=== PATIENT | male | born 1940 | race Two or more races ===

== ENCOUNTER 2017-02-16 13:29 | Emergency (ER) | payer MEDICARE ==
[2017-02-16 15:59] LABS: BASO # 0.1 10^3/uL (0.0-0.2); BASO % 0.5 % (0.0-1.0); EOS # 0.1 10^3/uL (0.0-0.50); EOS % 1.4 % (0.0-3.0); IMMATURE GRANULOCYTE # 0.2 10^3/uL (0-0); IMMATURE GRANULOCYTE % 1.7 % (0-0); LYMPH # 1.3 10^3/uL (1.5-4.5); LYMPH % 12.3 % (24.0-44.0); MEAN CORPUSCULAR HEMOGLOBIN 27.6 pg (27.0-33.0); MEAN CORPUSCULAR HGB CONC 32.5 g/dl (32.0-36.5); MEAN CORPUSCULAR VOLUME 85.1 fl (80.0-96.0); MONO # 0.6 10^3/uL (0.0-0.8); MONO % 6.3 % (0.0-5.0); NEUTROPHILS # 7.9 10^3/uL (1.8-7.7); NEUTROPHILS % 77.8 % (36.0-66.0); PLATELET COUNT, AUTOMATED 241 10^3/uL (150-450); RED CELL DISTRIBUTION WIDTH 13.2 % (11.5-14.5); WHITE BLOOD COUNT 10.2 10^3/uL (4.0-10.0)
[2017-02-16] MEDS: NORCO, ANEXSIA 5/325MG TABLET (HYDROcodone/ACETAMINOPHEN) PO (16:12)
[2017-02-16 16:21] LABS: ALBUMIN 3.4 GM/DL (3.2-5.2); ALBUMIN/GLOBULIN RATIO 0.97 (1.00-1.93); ALKALINE PHOSPHATASE 120 U/L (45-117); ALT/SGPT 17 U/L (12-78); ANION GAP 8 MEQ/L (8-16); AST/SGOT 29 U/L (7-37); BILIRUBIN,DIRECT 0.1 MG/DL (0.0-0.2); BILIRUBIN,TOTAL 0.4 MG/DL (0.2-1.0); BLOOD UREA NITROGEN 24 MG/DL (7-18); CALCIUM LEVEL 8.8 MG/DL (8.8-10.2); CARBON DIOXIDE LEVEL 30 MEQ/L (21-32); CHLORIDE LEVEL 103 MEQ/L (98-107); CREATININE FOR GFR 1.18 MG/DL (0.70-1.30); GLOMERULAR FILTRATION RATE > 60.0 (>42); GLUCOSE, FASTING 87 MG/DL (83-110); SODIUM LEVEL 141 MEQ/L (136-145); TOTAL PROTEIN 6.9 GM/DL (6.4-8.2)
== END 2017-02-16 17:21 | disposition home or self-care (01) ==
LOC: M ED 13:29
DX: G62.9 Polyneuropathy, unspecified (principal); I10 Essential (primary) hypertension; E78.5 Hyperlipidemia, unspecified; I25.2 Old myocardial infarction; Z95.5 Presence of coronary angioplasty implant and graft
CPT/HCPCS: 71020

== ENCOUNTER 2017-02-18 07:03 | Emergency (ER) | payer MEDICARE ==
[2017-02-18] MEDS: GABAPENTIN 300 MG CAP PO (09:30)
[2017-02-18] MEDS: PERCOCET 5MG/325MG TAB PO (09:31)
== END 2017-02-18 09:57 | disposition home or self-care (01) ==
LOC: M ED 07:03
DX: M89.2 Other disorders of bone development and growth (principal); G62.9 Polyneuropathy, unspecified; I10 Essential (primary) hypertension; I25.2 Old myocardial infarction; E78.5 Hyperlipidemia, unspecified; K21.9 Gastro-esophageal reflux disease without esophagitis; Z95.5 Presence of coronary angioplasty implant and graft; Z79.899 Other long term (current) drug therapy; Z79.01 Long term (current) use of anticoagulants
CPT/HCPCS: 73090

== ENCOUNTER 2017-04-01 09:55 | Outpatient (RCR) | payer MEDICARE | END 2017-04-17 | LOC: M OT 09:55 | DX: M79.603 Pain in arm, unspecified (principal); Z85.79 Personal history of other malignant neoplasms of lymphoid, hematopoietic and related tissues; Z51.89 Encounter for other specified aftercare | CPT/HCPCS: 97110 ==

== ENCOUNTER 2017-04-22 09:52 | Outpatient (RCR) | payer MEDICARE | END 2017-05-18 | LOC: M OT 09:52 | DX: Z51.89 Encounter for other specified aftercare (principal); M79.603 Pain in arm, unspecified; Z85.79 Personal history of other malignant neoplasms of lymphoid, hematopoietic and related tissues | CPT/HCPCS: 97110 ==

== ENCOUNTER 2017-05-27 09:45 | Outpatient (RCR) | payer MEDICARE | END 2017-06-17 | LOC: M OT 09:45 | DX: Z51.89 Encounter for other specified aftercare (principal); M79.603 Pain in arm, unspecified | CPT/HCPCS: 97110 ==

== ENCOUNTER → 2017-06-04 | Outpatient (CLI) | payer MEDICARE | LOC: M CLY 15:25 | DX: J40 Bronchitis, not specified as acute or chronic (principal) | CPT/HCPCS: 71046 ==

== ENCOUNTER 2017-06-25 19:48 | Inpatient (IN) | payer MEDICARE ==
[2017-06-25] MEDS: ACETAMINOPHEN TAB 650MG DOSE (2X325MG) PO (20:57)
[2017-06-25 20:58] LABS: HEMATOCRIT 33.8 % (42.0-52.0); HEMOGLOBIN 11.3 g/dl (13.5-17.5); MEAN CORPUSCULAR HEMOGLOBIN 28.8 pg (27.0-33.0); MEAN CORPUSCULAR HGB CONC 33.4 g/dl (32.0-36.5); MEAN CORPUSCULAR VOLUME 86.2 fl (80.0-96.0); PLATELET COUNT, AUTOMATED 161 10^3/uL (150-450); RED BLOOD COUNT 3.92 10^6/uL (4.30-6.10); RED CELL DISTRIBUTION WIDTH 13.9 % (11.5-14.5); WHITE BLOOD COUNT 6.7 10^3/uL (4.0-10.0)
[2017-06-25] MEDS: NS 1,000 ML IV ×2 (20:58→22:15)
[2017-06-25 21:09] LABS: INR 0.97; PARTIAL THROMBOPLASTIN TIME 22.4 SECONDS (26.8-37.9)
[2017-06-25 21:12] LABS: D-DIMER QUANT 525.9 ng/ml (<500)
[2017-06-25 21:17] LABS: APPEARANCE, URINE CLEAR (CLEAR); BACTERIA, URINE AUTO NEGATIVE (NEGATIVE); BILIRUBIN, URINE AUTO NEGATIVE (NEGATIVE); BLOOD, URINE BLOOD NEGATIVE (NEGATIVE); COLOR, URINE STRAW (YELLOW); GLUCOSE, URINE (UA) AUTO 3+ mg/dL (NEGATIVE); KETONE, URINE AUTO NEGATIVE (NEGATIVE); LEUKOCYTE ESTERASE, URINE AUTO NEGATIVE (NEGATIVE); NITRITE, URINE AUTO NEGATIVE (NEGATIVE); PROTEIN, URINE AUTO NEGATIVE (NEGATIVE); RBC, URINE AUTO 1 /HPF (0-3); SPECIFIC GRAVITY URINE AUTO 1.016 (1.002-1.035); SQUAMOUS EPITHELIAL CELL UR AU 0 /HPF (0-6); UROBILINOGEN, URINE AUTO 0.2 mg/dL (0.0-2.0); WBC, URINE AUTO 0 /HPF (0-3)
[2017-06-25 21:20] LABS: AMMONIA 25 uMOL/L (<32)
[2017-06-25 21:25] LABS: ALBUMIN 3.7 GM/DL (3.2-5.2); ALBUMIN/GLOBULIN RATIO 1.37 (1.00-1.93); ALKALINE PHOSPHATASE 69 U/L (45-117); ALT/SGPT 27 U/L (12-78); ANION GAP 8 MEQ/L (8-16); AST/SGOT 17 U/L (7-37); BILIRUBIN,DIRECT 0.1 MG/DL (0.0-0.2); BILIRUBIN,TOTAL 0.3 MG/DL (0.2-1.0); BLOOD UREA NITROGEN 28 MG/DL (7-18); CALCIUM LEVEL 8.7 MG/DL (8.8-10.2); CARBON DIOXIDE LEVEL 27 MEQ/L (21-32); CHLORIDE LEVEL 100 MEQ/L (98-107); CK-MB VALUE MASS 1.5 NG/ML (<3.6); CPK CREATINE PHOSPHOKINASE 40 U/L (39-308); CREATININE FOR GFR 1.16 MG/DL (0.70-1.30); GLOMERULAR FILTRATION RATE > 60.0 (>42); GLUCOSE, FASTING 355 MG/DL (70-100); MB/CK RELATIVE INDEX 3.75 (< OR =4); POTASSIUM SERUM 4.3 MEQ/L (3.5-5.1); SODIUM LEVEL 135 MEQ/L (136-145); TOTAL PROTEIN 6.4 GM/DL (6.4-8.2); TROPONIN I 0.03 NG/ML (< 0.10)
[2017-06-25] MEDS ORDERED: ISOVUE-370 76% 100ML VIAL (Q9967) As Ordered (22:35)
[2017-06-25 22:41] LABS: ESTIMATED AVERAGE GLUCOSE 226 MG/DL (60-110); HEMOGLOBIN A1c 9.5 %
[2017-06-25 22:42] LABS: BEDSIDE GLUCOSE 256 MG/DL (83-110)
[2017-06-26] MEDS ORDERED: DEXTROSE 50% 50 ML SYRINGE IV (01:00)
[2017-06-26] MEDS ORDERED: GLUCAGON FOR INJ 1 MG VIAL (J1610) SC (01:00)
[2017-06-26] MEDS ORDERED: GLUCOSE 4 GM CHEW TABLET PO (01:00)
[2017-06-26] MEDS ORDERED: NS 1,000 ML IV (01:08)
[2017-06-26] MEDS ORDERED: ONDANSETRON 4 MG TAB (S0181) PO (01:15)
[2017-06-26] MEDS: HumaLOG INSULIN (NovoLOG) PER UNIT SC ×5 (01:30→22:09)
[2017-06-26 01:31] LABS: BEDSIDE GLUCOSE 198 MG/DL (83-110)
[2017-06-26] MEDS: GABAPENTIN 300 MG CAP PO ×3 (01:45→22:08)
[2017-06-26 02:02] LABS: MAGNESIUM LEVEL 2.2 MG/DL (1.8-2.4)
[2017-06-26] MEDS: PRAVASTATIN 20 MG TAB PO ×2 (02:21→22:08)
[2017-06-26] MEDS: GEMFIBROZIL 600 MG TAB PO ×2 (02:22→22:08)
[2017-06-26] MEDS: NS 1,000 ML IV (02:23)
[2017-06-26 04:54] LABS: HEMATOCRIT 33.4 % (42.0-52.0); HEMOGLOBIN 11.1 g/dl (13.5-17.5); MEAN CORPUSCULAR HEMOGLOBIN 28.7 pg (27.0-33.0); MEAN CORPUSCULAR HGB CONC 33.2 g/dl (32.0-36.5); MEAN CORPUSCULAR VOLUME 86.3 fl (80.0-96.0); PLATELET COUNT, AUTOMATED 133 10^3/uL (150-450); RED BLOOD COUNT 3.87 10^6/uL (4.30-6.10); WHITE BLOOD COUNT 7.5 10^3/uL (4.0-10.0)
[2017-06-26 05:15] LABS: ANION GAP 9 MEQ/L (8-16); BLOOD UREA NITROGEN 19 MG/DL (7-18); CALCIUM LEVEL 8.5 MG/DL (8.8-10.2); CARBON DIOXIDE LEVEL 24 MEQ/L (21-32); CHLORIDE LEVEL 106 MEQ/L (98-107); CK-MB VALUE MASS 1.5 NG/ML (<3.6); CPK CREATINE PHOSPHOKINASE 35 U/L (39-308); CREATININE FOR GFR 0.92 MG/DL (0.70-1.30); GLOMERULAR FILTRATION RATE > 60.0 (>42); GLUCOSE, FASTING 186 MG/DL (70-100); MB/CK RELATIVE INDEX 4.28 (< OR =4); POTASSIUM SERUM 3.9 MEQ/L (3.5-5.1); SODIUM LEVEL 139 MEQ/L (136-145); TROPONIN I 0.04 NG/ML (< 0.10)
[2017-06-26] MEDS: HEPARIN SOD (PORCINE) 5000 UNITS/ML VIAL SC ×3 (06:00→22:09)
[2017-06-26] MEDS: THIAMINE 100 MG TAB PO (08:41)
[2017-06-26] MEDS: ASPIRIN 81 MG ENTERIC TAB PO (08:41)
[2017-06-26] MEDS: ATENOLOL 50 MG TAB PO (08:41)
[2017-06-26] MEDS: amLODIPine 10 MG TAB PO (08:41)
[2017-06-26] MEDS: CLOPIDOGREL 75 MG TAB PO (08:41)
[2017-06-26 10:50] LABS: CPK CREATINE PHOSPHOKINASE 30 U/L (39-308); TROPONIN I 0.04 NG/ML (< 0.10)
[2017-06-26 10:51] LABS: CK-MB VALUE MASS 1.9 NG/ML (<3.6); MB/CK RELATIVE INDEX 6.33 (< OR =4)
[2017-06-26 12:07] LABS: BEDSIDE GLUCOSE 285 MG/DL (83-110)
[2017-06-26 17:14] LABS: BEDSIDE GLUCOSE 186 MG/DL (83-110)
[2017-06-26] MEDS: LEVEMIR (INSULIN DETEMIR) 1 UNITS/0.01ML SC (22:09)
[2017-06-27 04:26] LABS: BEDSIDE GLUCOSE 286 MG/DL (83-110)
[2017-06-27] MEDS: HEPARIN SOD (PORCINE) 5000 UNITS/ML VIAL SC ×3 (05:57→21:46)
[2017-06-27 06:33] LABS: HEMATOCRIT 32.4 % (42.0-52.0); HEMOGLOBIN 10.9 g/dl (13.5-17.5); MEAN CORPUSCULAR HEMOGLOBIN 28.8 pg (27.0-33.0); MEAN CORPUSCULAR HGB CONC 33.6 g/dl (32.0-36.5); MEAN CORPUSCULAR VOLUME 85.5 fl (80.0-96.0); PLATELET COUNT, AUTOMATED 136 10^3/uL (150-450); RED BLOOD COUNT 3.79 10^6/uL (4.30-6.10); RED CELL DISTRIBUTION WIDTH 14.5 % (11.5-14.5)
[2017-06-27 06:49] LABS: ANION GAP 7 MEQ/L (8-16); BLOOD UREA NITROGEN 16 MG/DL (7-18); CALCIUM LEVEL 8.4 MG/DL (8.8-10.2); CARBON DIOXIDE LEVEL 25 MEQ/L (21-32); CHLORIDE LEVEL 105 MEQ/L (98-107); GLOMERULAR FILTRATION RATE > 60.0 (>42); GLUCOSE, FASTING 130 MG/DL (70-100); POTASSIUM SERUM 3.7 MEQ/L (3.5-5.1); SODIUM LEVEL 137 MEQ/L (136-145)
[2017-06-27] MEDS: CLOPIDOGREL 75 MG TAB PO (08:39)
[2017-06-27] MEDS: ATENOLOL 50 MG TAB PO (08:40)
[2017-06-27] MEDS: THIAMINE 100 MG TAB PO (08:40)
[2017-06-27] MEDS: amLODIPine 10 MG TAB PO (08:40)
[2017-06-27] MEDS: GABAPENTIN 300 MG CAP PO ×2 (08:40→21:45)
[2017-06-27] MEDS: ASPIRIN 81 MG ENTERIC TAB PO (08:40)
[2017-06-27] MEDS: HumaLOG INSULIN (NovoLOG) PER UNIT SC ×4 (08:41→21:00)
[2017-06-27 11:46] LABS: BEDSIDE GLUCOSE 139 MG/DL (83-110)
[2017-06-27 17:00] LABS: BEDSIDE GLUCOSE 209 MG/DL (83-110)
[2017-06-27] MEDS: ACETAMINOPHEN 500 MG TAB PO (17:31)
[2017-06-27 20:35] LABS: BEDSIDE GLUCOSE 222 MG/DL (83-110)
[2017-06-27] MEDS: PRAVASTATIN 20 MG TAB PO (21:45)
[2017-06-27] MEDS: GEMFIBROZIL 600 MG TAB PO (21:45)
[2017-06-27] MEDS: LEVEMIR (INSULIN DETEMIR) 1 UNITS/0.01ML SC (21:46)
[2017-06-28] MEDS: HEPARIN SOD (PORCINE) 5000 UNITS/ML VIAL SC ×3 (06:01→21:30)
[2017-06-28 06:22] LABS: HEMATOCRIT 33.1 % (42.0-52.0); HEMOGLOBIN 10.9 g/dl (13.5-17.5); MEAN CORPUSCULAR HEMOGLOBIN 28.6 pg (27.0-33.0); MEAN CORPUSCULAR HGB CONC 32.9 g/dl (32.0-36.5); MEAN CORPUSCULAR VOLUME 86.9 fl (80.0-96.0); PLATELET COUNT, AUTOMATED 107 10^3/uL (150-450); RED BLOOD COUNT 3.81 10^6/uL (4.30-6.10); RED CELL DISTRIBUTION WIDTH 14.4 % (11.5-14.5); WHITE BLOOD COUNT 5.8 10^3/uL (4.0-10.0)
[2017-06-28 06:35] LABS: ANION GAP 8 MEQ/L (8-16); BLOOD UREA NITROGEN 18 MG/DL (7-18); CALCIUM LEVEL 8.5 MG/DL (8.8-10.2); CARBON DIOXIDE LEVEL 24 MEQ/L (21-32); CHLORIDE LEVEL 103 MEQ/L (98-107); CREATININE FOR GFR 1.04 MG/DL (0.70-1.30); GLOMERULAR FILTRATION RATE > 60.0 (>42); GLUCOSE, FASTING 180 MG/DL (70-100); POTASSIUM SERUM 4.2 MEQ/L (3.5-5.1); SODIUM LEVEL 135 MEQ/L (136-145)
[2017-06-28] MEDS: ATENOLOL 50 MG TAB PO (07:47)
[2017-06-28] MEDS: amLODIPine 10 MG TAB PO (07:47)
[2017-06-28] MEDS: THIAMINE 100 MG TAB PO (07:47)
[2017-06-28] MEDS: CLOPIDOGREL 75 MG TAB PO (07:47)
[2017-06-28] MEDS: GABAPENTIN 300 MG CAP PO ×3 (07:47→21:30)
[2017-06-28] MEDS: ASPIRIN 81 MG ENTERIC TAB PO (07:47)
[2017-06-28] MEDS: HumaLOG INSULIN (NovoLOG) PER UNIT SC ×4 (07:48→21:31)
[2017-06-28 12:03] LABS: BEDSIDE GLUCOSE 163 MG/DL (83-110)
[2017-06-28] MEDS: LIDOCAINE 5% (LIDODERM) PATCH TD (12:07)
[2017-06-28] MEDS: valACYclovir HCL 500 MG TAB PO ×2 (12:07→21:30)
[2017-06-28] MEDS: ACETAMINOPHEN 500 MG TAB PO (16:19)
[2017-06-28 17:08] LABS: BEDSIDE GLUCOSE 146 MG/DL (83-110)
[2017-06-28 20:16] LABS: BEDSIDE GLUCOSE 259 MG/DL (83-110)
[2017-06-28] MEDS: **NOTE PATIENT COMMENT** MISC XX (21:00)
[2017-06-28] MEDS: GEMFIBROZIL 600 MG TAB PO (21:29)
[2017-06-28] MEDS: PRAVASTATIN 20 MG TAB PO (21:29)
[2017-06-28] MEDS: LEVEMIR (INSULIN DETEMIR) 1 UNITS/0.01ML SC (21:32)
[2017-06-29] MEDS: ACETAMINOPHEN 500 MG TAB PO ×2 (05:56→11:56)
[2017-06-29 06:25] LABS: HEMATOCRIT 30.7 % (42.0-52.0); HEMOGLOBIN 10.4 g/dl (13.5-17.5); MEAN CORPUSCULAR HEMOGLOBIN 28.7 pg (27.0-33.0); MEAN CORPUSCULAR HGB CONC 33.9 g/dl (32.0-36.5); MEAN CORPUSCULAR VOLUME 84.8 fl (80.0-96.0); PLATELET COUNT, AUTOMATED 102 10^3/uL (150-450); RED BLOOD COUNT 3.62 10^6/uL (4.30-6.10); RED CELL DISTRIBUTION WIDTH 14.6 % (11.5-14.5); WHITE BLOOD COUNT 4.9 10^3/uL (4.0-10.0)
[2017-06-29] MEDS: HEPARIN SOD (PORCINE) 5000 UNITS/ML VIAL SC ×3 (06:34→21:17)
[2017-06-29 06:39] LABS: ANION GAP 7 MEQ/L (8-16); BLOOD UREA NITROGEN 16 MG/DL (7-18); CARBON DIOXIDE LEVEL 24 MEQ/L (21-32); CHLORIDE LEVEL 101 MEQ/L (98-107); CREATININE FOR GFR 1.09 MG/DL (0.70-1.30); GLOMERULAR FILTRATION RATE > 60.0 (>42); GLUCOSE, FASTING 154 MG/DL (70-100); POTASSIUM SERUM 4.1 MEQ/L (3.5-5.1); SODIUM LEVEL 132 MEQ/L (136-145)
[2017-06-29] MEDS: CLOPIDOGREL 75 MG TAB PO (08:04)
[2017-06-29] MEDS: THIAMINE 100 MG TAB PO (08:04)
[2017-06-29] MEDS: amLODIPine 10 MG TAB PO (08:05)
[2017-06-29] MEDS: ASPIRIN 81 MG ENTERIC TAB PO (08:05)
[2017-06-29] MEDS: GABAPENTIN 300 MG CAP PO ×3 (08:05→21:16)
[2017-06-29] MEDS: valACYclovir HCL 500 MG TAB PO ×2 (08:05→21:15)
[2017-06-29] MEDS: HumaLOG INSULIN (NovoLOG) PER UNIT SC ×4 (08:05→21:16)
[2017-06-29] MEDS: ATENOLOL 50 MG TAB PO (08:05)
[2017-06-29] MEDS: LIDOCAINE 5% (LIDODERM) PATCH TD ×2 (08:14→21:00)
[2017-06-29] MEDS: **NOTE PATIENT COMMENT** MISC XX (08:29)
[2017-06-29 17:06] LABS: BEDSIDE GLUCOSE 190 MG/DL (83-110)
[2017-06-29] MEDS: GEMFIBROZIL 600 MG TAB PO (21:15)
[2017-06-29] MEDS: PRAVASTATIN 20 MG TAB PO (21:15)
[2017-06-29] MEDS: LEVEMIR (INSULIN DETEMIR) 1 UNITS/0.01ML SC (21:17)
[2017-06-30] MEDS: ACETAMINOPHEN 500 MG TAB PO ×3 (01:05→21:06)
[2017-06-30 06:01] LABS: HEMATOCRIT 31.3 % (42.0-52.0); HEMOGLOBIN 10.6 g/dl (13.5-17.5); MEAN CORPUSCULAR HGB CONC 33.9 g/dl (32.0-36.5); MEAN CORPUSCULAR VOLUME 85.5 fl (80.0-96.0); PLATELET COUNT, AUTOMATED 122 10^3/uL (150-450); RED BLOOD COUNT 3.66 10^6/uL (4.30-6.10); RED CELL DISTRIBUTION WIDTH 14.5 % (11.5-14.5); WHITE BLOOD COUNT 4.9 10^3/uL (4.0-10.0)
[2017-06-30] MEDS: HEPARIN SOD (PORCINE) 5000 UNITS/ML VIAL SC ×3 (06:16→21:07)
[2017-06-30 06:19] LABS: ANION GAP 7 MEQ/L (8-16); BLOOD UREA NITROGEN 16 MG/DL (7-18); CALCIUM LEVEL 8.6 MG/DL (8.8-10.2); CARBON DIOXIDE LEVEL 25 MEQ/L (21-32); CHLORIDE LEVEL 104 MEQ/L (98-107); CREATININE FOR GFR 1.13 MG/DL (0.70-1.30); GLOMERULAR FILTRATION RATE > 60.0 (>42); GLUCOSE, FASTING 133 MG/DL (70-100); POTASSIUM SERUM 3.9 MEQ/L (3.5-5.1); SODIUM LEVEL 136 MEQ/L (136-145)
[2017-06-30] MEDS: **NOTE PATIENT COMMENT** MISC XX (07:12)
[2017-06-30] MEDS: HumaLOG INSULIN (NovoLOG) PER UNIT SC ×4 (07:13→21:00)
[2017-06-30] MEDS: THIAMINE 100 MG TAB PO (07:49)
[2017-06-30] MEDS: CLOPIDOGREL 75 MG TAB PO (07:49)
[2017-06-30] MEDS: amLODIPine 10 MG TAB PO (07:49)
[2017-06-30] MEDS: valACYclovir HCL 500 MG TAB PO ×2 (07:49→21:04)
[2017-06-30] MEDS: ATENOLOL 50 MG TAB PO (07:49)
[2017-06-30] MEDS: ASPIRIN 81 MG ENTERIC TAB PO (07:49)
[2017-06-30] MEDS: GABAPENTIN 300 MG CAP PO ×3 (07:50→21:05)
[2017-06-30 17:01] LABS: BEDSIDE GLUCOSE 145 MG/DL (83-110)
[2017-06-30 17:01] LABS: BEDSIDE GLUCOSE 221 MG/DL (83-110)
[2017-06-30 17:01] LABS: BEDSIDE GLUCOSE 258 MG/DL (83-110)
[2017-06-30] MEDS: LIDOCAINE 5% (LIDODERM) PATCH TD (21:00)
[2017-06-30] MEDS: GEMFIBROZIL 600 MG TAB PO (21:05)
[2017-06-30] MEDS: PRAVASTATIN 20 MG TAB PO (21:07)
[2017-06-30] MEDS: LEVEMIR (INSULIN DETEMIR) 1 UNITS/0.01ML SC (21:07)
[2017-06-30 21:08] LABS: BEDSIDE GLUCOSE 181 MG/DL (83-110)
[2017-07-01] MEDS: HEPARIN SOD (PORCINE) 5000 UNITS/ML VIAL SC ×3 (06:00→21:37)
[2017-07-01] MEDS: ASPIRIN 81 MG ENTERIC TAB PO (07:57)
[2017-07-01] MEDS: THIAMINE 100 MG TAB PO (07:57)
[2017-07-01] MEDS: CLOPIDOGREL 75 MG TAB PO (07:57)
[2017-07-01] MEDS: HumaLOG INSULIN (NovoLOG) PER UNIT SC ×4 (07:57→21:28)
[2017-07-01] MEDS: valACYclovir HCL 500 MG TAB PO ×2 (07:57→21:37)
[2017-07-01] MEDS: amLODIPine 10 MG TAB PO (07:58)
[2017-07-01] MEDS: GABAPENTIN 300 MG CAP PO ×3 (07:58→21:37)
[2017-07-01] MEDS: ATENOLOL 50 MG TAB PO (07:58)
[2017-07-01] MEDS: **NOTE PATIENT COMMENT** MISC XX (09:00)
[2017-07-01 11:46] LABS: BEDSIDE GLUCOSE 150 MG/DL (83-110)
[2017-07-01 17:04] LABS: BEDSIDE GLUCOSE 187 MG/DL (83-110)
[2017-07-01 20:43] LABS: BEDSIDE GLUCOSE 172 MG/DL (83-110)
[2017-07-01 20:44] LABS: BEDSIDE GLUCOSE 137 MG/DL (83-110)
[2017-07-01] MEDS: GEMFIBROZIL 600 MG TAB PO (21:37)
[2017-07-01] MEDS: PRAVASTATIN 20 MG TAB PO (21:37)
[2017-07-01] MEDS: LEVEMIR (INSULIN DETEMIR) 1 UNITS/0.01ML SC (21:37)
[2017-07-01] MEDS: LIDOCAINE 5% (LIDODERM) PATCH TD (21:38)
[2017-07-01] MEDS: ACETAMINOPHEN 500 MG TAB PO (23:45)
[2017-07-02] MEDS: HEPARIN SOD (PORCINE) 5000 UNITS/ML VIAL SC (06:01)
[2017-07-02] MEDS: **NOTE PATIENT COMMENT** MISC XX (09:00)
[2017-07-02] MEDS: GABAPENTIN 300 MG CAP PO (09:21)
[2017-07-02] MEDS: HumaLOG INSULIN (NovoLOG) PER UNIT SC (09:21)
[2017-07-02] MEDS: THIAMINE 100 MG TAB PO (09:21)
[2017-07-02] MEDS: valACYclovir HCL 500 MG TAB PO (09:21)
[2017-07-02] MEDS: amLODIPine 10 MG TAB PO (09:22)
[2017-07-02] MEDS: ASPIRIN 81 MG ENTERIC TAB PO (09:22)
[2017-07-02] MEDS: ATENOLOL 50 MG TAB PO (09:22)
[2017-07-02] MEDS: CLOPIDOGREL 75 MG TAB PO (09:22)
[2017-07-02 19:40] LABS: BEDSIDE GLUCOSE 206 MG/DL (83-110)
[2017-07-02 19:40] LABS: BEDSIDE GLUCOSE 124 MG/DL (83-110)
== END 2017-07-02 11:06 | disposition home health service (06) | DRG 638 ==
LOC: M ED INP 06-26 00:48 → M ICU 06-26 02:11 → M ED 19:48 → M MSPAV 06-26 16:36
DX: E09.9 Drug or chemical induced diabetes mellitus without complications (principal); C85.10 Unspecified B-cell lymphoma, unspecified site; B00.89 Other herpesviral infection; G47.34 Idiopathic sleep related nonobstructive alveolar hypoventilation; I25.10 Atherosclerotic heart disease of native coronary artery without angina pectoris; I50.9 Heart failure, unspecified; I11.0 Hypertensive heart disease with heart failure; Z92.21 Personal history of antineoplastic chemotherapy; Z79.82 Long term (current) use of aspirin; Z79.02 Long term (current) use of antithrombotics/antiplatelets; Z79.899 Other long term (current) drug therapy; Z98.42 Cataract extraction status, left eye; Z95.9 Presence of cardiac and vascular implant and graft, unspecified; G62.9 Polyneuropathy, unspecified

== ENCOUNTER → 2018-04-21 | Outpatient (CLI) | payer MEDICARE ==
[~2018-04-21] MED LIST: ACET500T15 PO; AMLO10TA5 PO; ASPI1TAB PO; ATEN50TA2 PO; CEFD1CAP8 PO; GABA-1171 PO; GABA-843 PO; GEMF600T5 PO; MORP-38 PO; MORP15TA2 PO; NITR4TASL SL; NORCOTAB PO; OXYC1TAB15 PO; PLAV1TAB2 PO; PRAV40TA2 PO; PROC10TA4 PO; VALA500T5 PO; VITA100T8 PO; VITA50005; VITA50005 PO; ZOFR8TAB22 PO
[2018-04-21 10:20] LABS: HEMOGLOBIN A1c 5.9 %
[2018-04-21 10:31] LABS: CHOLESTEROL RISK RATIO 2.489 (<5)
[2018-04-21 11:03] LABS: TOTAL 25(OH) VITAMIN D 51.1 NG/ML (30.0-100.0)
== END ==
LOC: M WUC 08:52
PROVIDERS: ATTEND Family Medicine
DX: I25.10 Atherosclerotic heart disease of native coronary artery without angina pectoris (principal); E11.65 Type 2 diabetes mellitus with hyperglycemia; E78.2 Mixed hyperlipidemia

== ENCOUNTER → 2018-09-17 | Outpatient (CLI) | payer MEDICARE ==
[~2018-09-17] MED LIST changes: -ASPI1TAB PO; +ASPI81TA26 PO; +HYDR-3715 PO; -NORCOTAB PO
[2018-09-17 16:56] LABS: BASO % 0.6 % (0.0-1.0); EOS # 0.2 10^3/uL (0.0-0.50); EOS % 2.4 % (0.0-3.0); HEMATOCRIT 36.5 % (42.0-52.0); LYMPH % 15.9 % (24.0-44.0); MEAN CORPUSCULAR HEMOGLOBIN 29.3 pg (27.0-33.0); MEAN CORPUSCULAR HGB CONC 32.9 g/dl (32.0-36.5); MONO # 0.5 10^3/uL (0.0-0.8); MONO % 8.1 % (0.0-5.0); NEUTROPHILS # 4.6 10^3/uL (1.8-7.7); NEUTROPHILS % 72.7 % (36.0-66.0); PLATELET COUNT, AUTOMATED 189 10^3/uL (150-450); WHITE BLOOD COUNT 6.3 10^3/uL (4.0-10.0)
[2018-09-17 17:16] LABS: CALCIUM LEVEL 8.4 MG/DL (8.8-10.2); CREATININE FOR GFR 1.24 MG/DL (0.70-1.30); GLOMERULAR FILTRATION RATE 59.7 (>35)
== END ==
LOC: M WUC 14:20
PROVIDERS: ATTEND Nurse Practitioner Adult Health
DX: I25.10 Atherosclerotic heart disease of native coronary artery without angina pectoris (principal)

== ENCOUNTER → 2019-02-25 | Outpatient (REF) | payer MEDICARE ==
[~2019-02-25] MED LIST changes: -MORP-38 PO; +MORP-69 PO
[2019-02-25 17:07] LABS: BASO # 0.1 10^3/uL (0.0-0.2); BASO % 0.7 % (0.0-1.0); EOS # 0.1 10^3/uL (0.0-0.5); EOS % 1.3 % (0.0-3.0); HEMOGLOBIN 12.4 g/dl (13.5-17.5); LYMPH # 1.1 10^3/uL (1.5-5.0); LYMPH % 15.7 % (24.0-44.0); MEAN CORPUSCULAR HGB CONC 31.8 g/dl (32.0-36.5); MEAN CORPUSCULAR VOLUME 94.2 fl (80.0-96.0); MONO # 0.5 10^3/uL (0.0-0.8); MONO % 7.8 % (0.0-5.0); NEUTROPHILS % 74.1 % (36.0-66.0); PLATELET COUNT, AUTOMATED 200 10^3/uL (150-450); RED BLOOD COUNT 4.14 10^6/uL (4.30-6.10); WHITE BLOOD COUNT 6.8 10^3/uL (4.0-10.0)
[2019-02-25 17:13] LABS: ALBUMIN 4.2 GM/DL (3.2-5.2); BILIRUBIN,TOTAL 0.6 MG/DL (0.2-1.0); CHOLESTEROL RISK RATIO 2.72 (<5); CREATININE FOR GFR 1.81 MG/DL (0.70-1.30); GLOMERULAR FILTRATION RATE 38.6 (>35); MAGNESIUM LEVEL 2.3 MG/DL (1.8-2.4); POTASSIUM SERUM 4.8 MEQ/L (3.5-5.1); TOTAL PROTEIN 6.9 GM/DL (6.4-8.2)
== END ==
LOC: M SFHCCLAY 11:51
PROVIDERS: ATTEND Family Medicine
DX: C85.10 Unspecified B-cell lymphoma, unspecified site (principal); I10 Essential (primary) hypertension; I73.9 Peripheral vascular disease, unspecified; E78.2 Mixed hyperlipidemia; E11.51 Type 2 diabetes mellitus with diabetic peripheral angiopathy without gangrene

== ENCOUNTER → 2019-06-29 | Outpatient (CLI) | payer MEDICARE ==
[2019-06-29 16:43] LABS: BASO % 0.5 % (0.0-1.0); EOS # 0.2 10^3/uL (0.0-0.5); HEMATOCRIT 39.7 % (42.0-52.0); HEMOGLOBIN 12.8 g/dl (13.5-17.5); LYMPH # 1.2 10^3/uL (1.5-5.0); LYMPH % 16.3 % (24.0-44.0); MEAN CORPUSCULAR HEMOGLOBIN 29.4 pg (27.0-33.0); MEAN CORPUSCULAR HGB CONC 32.2 g/dl (32.0-36.5); MEAN CORPUSCULAR VOLUME 91.3 fl (80.0-96.0); MONO # 0.6 10^3/uL (0.0-0.8); NEUTROPHILS # 5.5 10^3/uL (1.5-8.5); NEUTROPHILS % 72.7 % (36.0-66.0); PLATELET COUNT, AUTOMATED 178 10^3/uL (150-450); RED BLOOD COUNT 4.35 10^6/uL (4.30-6.10); WHITE BLOOD COUNT 7.5 10^3/uL (4.0-10.0)
[2019-06-29 16:58] LABS: ALBUMIN 4.1 GM/DL (3.2-5.2); BILIRUBIN,TOTAL 0.5 MG/DL (0.2-1.0); CALCIUM LEVEL 8.7 MG/DL (8.8-10.2); CREATININE FOR GFR 1.69 MG/DL (0.70-1.30); GLOMERULAR FILTRATION RATE 41.7 (>35); TOTAL PROTEIN 6.6 GM/DL (6.4-8.2)
== END ==
LOC: M WUC 12:14
PROVIDERS: ATTEND Internal Medicine Hematology & Oncology
DX: C83.34 Diffuse large B-cell lymphoma, lymph nodes of axilla and upper limb (principal)

== ENCOUNTER → 2020-01-05 | Outpatient (CLI) | payer MEDICARE ==
[~2020-01-05] MED LIST changes: -AMLO10TA5 PO; +AMLO1TAB25 PO
[2020-01-05 09:57] LABS: BASO % 0.4 % (0.0-1.0); EOS # 0.2 10^3/uL (0.0-0.5); EOS % 2.7 % (0.0-3.0); HEMATOCRIT 42.2 % (42.0-52.0); HEMOGLOBIN 13.5 g/dl (13.5-17.5); LYMPH # 1.1 10^3/uL (1.5-5.0); LYMPH % 12.5 % (24.0-44.0); MEAN CORPUSCULAR HEMOGLOBIN 29.5 pg (27.0-33.0); MEAN CORPUSCULAR VOLUME 92.1 fl (80.0-96.0); MONO # 0.5 10^3/uL (0.0-0.8); MONO % 6.1 % (0.0-5.0); NEUTROPHILS # 6.7 10^3/uL (1.5-8.5); NEUTROPHILS % 77.8 % (36.0-66.0); PLATELET COUNT, AUTOMATED 202 10^3/uL (150-450); RED BLOOD COUNT 4.58 10^6/uL (4.30-6.10); WHITE BLOOD COUNT 8.6 10^3/uL (4.0-10.0)
[2020-01-05 10:55] LABS: CALCIUM LEVEL 8.7 MG/DL (8.8-10.2); CHOLESTEROL RISK RATIO 2.627 (<5); CREATININE FOR GFR 1.81 MG/DL (0.70-1.30); GLOMERULAR FILTRATION RATE 38.5 (>35); POTASSIUM SERUM 4.4 MEQ/L (3.5-5.1)
== END ==
LOC: M WUC 08:21
PROVIDERS: ATTEND Internal Medicine Cardiovascular Disease
DX: I25.10 Atherosclerotic heart disease of native coronary artery without angina pectoris (principal); Z98.61 Coronary angioplasty status; I10 Essential (primary) hypertension

== ENCOUNTER → 2020-02-16 | Outpatient (CLI) | payer MEDICARE ==
[2020-02-16 09:43] LABS: BASO # 0.1 10^3/uL (0.0-0.2); BASO % 0.7 % (0.0-1.0); EOS # 0.2 10^3/uL (0.0-0.5); EOS % 2.9 % (0.0-3.0); HEMATOCRIT 41.8 % (42.0-52.0); HEMOGLOBIN 13.4 g/dl (13.5-17.5); LYMPH # 1.1 10^3/uL (1.5-5.0); LYMPH % 14.7 % (24.0-44.0); MEAN CORPUSCULAR HEMOGLOBIN 29.6 pg (27.0-33.0); MEAN CORPUSCULAR HGB CONC 32.1 g/dl (32.0-36.5); MEAN CORPUSCULAR VOLUME 92.3 fl (80.0-96.0); MONO # 0.6 10^3/uL (0.0-0.8); MONO % 7.9 % (0.0-5.0); NEUTROPHILS # 5.3 10^3/uL (1.5-8.5); NEUTROPHILS % 73.1 % (36.0-66.0); PLATELET COUNT, AUTOMATED 175 10^3/uL (150-450); RED BLOOD COUNT 4.53 10^6/uL (4.30-6.10); WHITE BLOOD COUNT 7.3 10^3/uL (4.0-10.0)
[2020-02-16 10:17] LABS: ALBUMIN 3.8 GM/DL (3.2-5.2); BILIRUBIN,TOTAL 0.5 MG/DL (0.2-1.0); CALCIUM LEVEL 8.4 MG/DL (8.8-10.2); CHOLESTEROL RISK RATIO 3.142 (<5); CREATININE FOR GFR 1.85 MG/DL (0.70-1.30); GLOMERULAR FILTRATION RATE 37.5 (>35); MALB URINE SIEMENS 45.4 MG/L; MAU/CREAT RATIO 58.2 MCG/MG (0.0-30.0); POTASSIUM SERUM 4.6 MEQ/L (3.5-5.1); THYROID STIMULATING HORMONE 2.59 uIU/ML (0.358-3.740); TOTAL PROTEIN 6.2 GM/DL (6.4-8.2)
[2020-02-16 10:25] LABS: HEMOGLOBIN A1c 5.8 %
== END ==
LOC: M WUC 08:07
PROVIDERS: ATTEND Physician Assistant
DX: E78.2 Mixed hyperlipidemia (principal); E11.9 Type 2 diabetes mellitus without complications; I10 Essential (primary) hypertension

== ENCOUNTER → 2020-07-11 | Outpatient (CLI) | payer MEDICARE ==
[~2020-07-11] MED LIST changes: +GABA-282 PO; -GABA-843 PO
[2020-07-11 10:32] LABS: BASO # 0.1 10^3/uL (0.0-0.2); BASO % 0.7 % (0.0-1.0); EOS # 0.2 10^3/uL (0.0-0.5); EOS % 3.2 % (0.0-3.0); HEMATOCRIT 40.9 % (42.0-52.0); HEMOGLOBIN 13.1 g/dl (13.5-17.5); LYMPH # 0.9 10^3/uL (1.5-5.0); LYMPH % 12.9 % (24.0-44.0); MEAN CORPUSCULAR HEMOGLOBIN 29.4 pg (27.0-33.0); MEAN CORPUSCULAR VOLUME 91.7 fl (80.0-96.0); MONO # 0.5 10^3/uL (0.0-0.8); MONO % 6.9 % (2.0-8.0); NEUTROPHILS # 5.2 10^3/uL (1.5-8.5); NEUTROPHILS % 75.7 % (36.0-66.0); PLATELET COUNT, AUTOMATED 170 10^3/uL (150-450); RED BLOOD COUNT 4.46 10^6/uL (4.30-6.10); WHITE BLOOD COUNT 6.9 10^3/uL (4.0-10.0)
[2020-07-11 11:02] LABS: ALBUMIN 3.9 GM/DL (3.2-5.2); BILIRUBIN,TOTAL 0.5 MG/DL (0.2-1.0); CALCIUM LEVEL 8.9 MG/DL (8.8-10.2); CREATININE FOR GFR 1.79 MG/DL (0.70-1.30); GLOMERULAR FILTRATION RATE 38.9 (>35); POTASSIUM SERUM 4.1 MEQ/L (3.5-5.1); TOTAL PROTEIN 6.4 GM/DL (6.4-8.2)
== END ==
LOC: M WUC 08:17
PROVIDERS: ATTEND Nurse Practitioner Family
DX: C83.34 Diffuse large B-cell lymphoma, lymph nodes of axilla and upper limb (principal)

== ENCOUNTER → 2021-01-03 | Outpatient (CLI) | payer MEDICARE ==
[~2021-01-03] MED LIST changes: -OXYC1TAB15 PO; +OXYC7.5T3 PO
[2021-01-03 10:28] LABS: CHOLESTEROL RISK RATIO 2.877 (<5)
== END ==
LOC: M WUC 08:02
PROVIDERS: ATTEND Internal Medicine Cardiovascular Disease
DX: I25.10 Atherosclerotic heart disease of native coronary artery without angina pectoris (principal); Z98.61 Coronary angioplasty status; E78.49 Other hyperlipidemia

== ENCOUNTER → 2021-02-16 | Outpatient (CLI) | payer MEDICARE ==
[2021-02-16 10:16] LABS: HEMOGLOBIN A1c 5.7 %
[2021-02-16 10:38] LABS: CHOLESTEROL RISK RATIO 3.615 (<5)
[2021-02-16 10:47] LABS: CREATININE, URINE 77.8 MG/DL; MALB URINE SIEMENS 59.5 MG/L; MAU/CREAT RATIO 76.4 MCG/MG (0.0-30.0)
== END ==
LOC: M WUC 08:01
PROVIDERS: ATTEND Nurse Practitioner Family
DX: E78.2 Mixed hyperlipidemia (principal); E11.9 Type 2 diabetes mellitus without complications

== ENCOUNTER → 2021-09-15 | Outpatient (REF) | payer MEDICARE ==
[~2021-09-15] MED LIST changes: -CEFD1CAP8 PO; +CEFD300C41 PO; -PROC10TA4 PO; +PROC10TA5 PO
[2021-09-15 11:50] LABS: BASO # 0.1 10^3/uL (0.0-0.2); BASO % 0.6 % (0.0-1.0); EOS # 0.1 10^3/uL (0.0-0.5); EOS % 1.2 % (0.0-3.0); HEMATOCRIT 39.4 % (42.0-52.0); HEMOGLOBIN 13.2 g/dl (13.5-17.5); LYMPH % 12.4 % (24.0-44.0); MEAN CORPUSCULAR HEMOGLOBIN 31.2 pg (27.0-33.0); MEAN CORPUSCULAR HGB CONC 33.5 g/dl (32.0-36.5); MEAN CORPUSCULAR VOLUME 93.1 fl (80.0-96.0); MONO # 0.6 10^3/uL (0.0-0.8); MONO % 6.9 % (2.0-8.0); NEUTROPHILS # 6.3 10^3/uL (1.5-8.5); NEUTROPHILS % 78.4 % (36.0-66.0); PLATELET COUNT, AUTOMATED 151 10^3/uL (150-450); RED BLOOD COUNT 4.23 10^6/uL (4.30-6.10); WHITE BLOOD COUNT 8.1 10^3/uL (4.0-10.0)
[2021-09-15 12:53] LABS: ALBUMIN 3.7 GM/DL (3.2-5.2); BILIRUBIN,TOTAL 0.5 MG/DL (0.2-1.0); CALCIUM LEVEL 9.3 MG/DL (8.8-10.2); CHOLESTEROL RISK RATIO 2.107 (<5); CREATININE FOR GFR 1.81 MG/DL (0.70-1.30); GLOMERULAR FILTRATION RATE 38.3 (>35); POTASSIUM SERUM 4.3 MEQ/L (3.5-5.1); TOTAL PROTEIN 6.3 GM/DL (6.4-8.2)
== END ==
LOC: M SFHCCLAY 09:18
PROVIDERS: ATTEND Nurse Practitioner Family
DX: E78.2 Mixed hyperlipidemia (principal); E11.9 Type 2 diabetes mellitus without complications; I10 Essential (primary) hypertension

== ENCOUNTER → 2022-03-19 | Outpatient (REF) | payer MEDICARE ==
[~2022-03-19] MED LIST changes: +CLOP75TA99 PO; -PLAV1TAB2 PO
[2022-03-19 18:04] LABS: BASO % 0.4 % (0.0-1.0); EOS # 0.1 10^3/uL (0.0-0.5); EOS % 1.1 % (0.0-3.0); HEMATOCRIT 39.8 % (42.0-52.0); HEMOGLOBIN 12.9 g/dl (13.5-17.5); LYMPH # 1.1 10^3/uL (1.5-5.0); LYMPH % 10.2 % (24.0-44.0); MEAN CORPUSCULAR HEMOGLOBIN 30.9 pg (27.0-33.0); MEAN CORPUSCULAR HGB CONC 32.4 g/dl (32.0-36.5); MEAN CORPUSCULAR VOLUME 95.4 fl (80.0-96.0); MONO # 0.7 10^3/uL (0.0-0.8); MONO % 6.8 % (2.0-8.0); NEUTROPHILS # 8.6 10^3/uL (1.5-8.5); NEUTROPHILS % 80.9 % (36.0-66.0); PLATELET COUNT, AUTOMATED 145 10^3/uL (150-450); RED BLOOD COUNT 4.17 10^6/uL (4.30-6.10); WHITE BLOOD COUNT 10.7 10^3/uL (4.0-10.0)
[2022-03-19 18:29] LABS: ALBUMIN 3.8 G/DL (3.2-5.2); BILIRUBIN,TOTAL 0.6 MG/DL (0.3-1.2); CHOLESTEROL RISK RATIO 2.48 (<5); CREATININE FOR GFR 1.77 MG/DL (0.70-1.30); GLOMERULAR FILTRATION RATE 39.2 (>35); LDL CHOLESTEROL 49.6 MG/DL (<100); POTASSIUM SERUM 4.6 MMOL/L (3.5-5.1); TOTAL PROTEIN 6.3 G/DL (5.7-8.2)
[2022-03-19 19:28] LABS: HEMOGLOBIN A1c 5.4 % (4.0-6.0)
== END ==
LOC: M SFHCCLAY 10:22
PROVIDERS: ATTEND Nurse Practitioner Family
DX: I25.10 Atherosclerotic heart disease of native coronary artery without angina pectoris (principal); E78.2 Mixed hyperlipidemia; C85.10 Unspecified B-cell lymphoma, unspecified site; E11.22 Type 2 diabetes mellitus with diabetic chronic kidney disease; N18.32 Chronic kidney disease, stage 3b; I12.9 Hypertensive chronic kidney disease with stage 1 through stage 4 chronic kidney disease, or unspecified chronic kidney disease

== ENCOUNTER → 2022-06-13 | Outpatient (CLI) | payer MEDICARE ==
[2022-06-13 17:01] LABS: BASO # 0.1 10^3/uL (0.0-0.2); BASO % 0.6 % (0.0-1.0); EOS # 0.1 10^3/uL (0.0-0.5); EOS % 1.3 % (0.0-3.0); HEMATOCRIT 40.3 % (42.0-52.0); HEMOGLOBIN 13.4 g/dl (13.5-17.5); LYMPH # 1.5 10^3/uL (1.5-5.0); MEAN CORPUSCULAR HEMOGLOBIN 31.1 pg (27.0-33.0); MEAN CORPUSCULAR HGB CONC 33.3 g/dl (32.0-36.5); MEAN CORPUSCULAR VOLUME 93.5 fl (80.0-96.0); MONO # 0.7 10^3/uL (0.0-0.8); MONO % 7.5 % (2.0-8.0); NEUTROPHILS # 6.5 10^3/uL (1.5-8.5); PLATELET COUNT, AUTOMATED 180 10^3/uL (150-450); RED BLOOD COUNT 4.31 10^6/uL (4.30-6.10)
[2022-06-13 17:17] LABS: ALBUMIN 3.9 G/DL (3.2-5.2); BILIRUBIN,TOTAL 0.7 MG/DL (0.3-1.2); CALCIUM LEVEL 8.8 MG/DL (8.3-10.6); CREATININE FOR GFR 1.65 MG/DL (0.70-1.30); GLOMERULAR FILTRATION RATE 42.5 (>35); POTASSIUM SERUM 3.8 MMOL/L (3.5-5.1); TOTAL PROTEIN 6.5 G/DL (5.7-8.2)
== END ==
LOC: M WUC 13:31
PROVIDERS: ATTEND Physician Assistant
DX: R19.7 Diarrhea, unspecified (principal)

== ENCOUNTER → 2022-06-21 | Outpatient (REF) | payer MEDICARE | LOC: M SFHCCLAY 08:57 | PROVIDERS: ATTEND Nurse Practitioner Family | DX: R19.7 Diarrhea, unspecified (principal) ==

== ENCOUNTER → 2022-08-07 | Outpatient (CLI) | payer MEDICARE ==
[2022-08-07 10:36] LABS: CALCIUM LEVEL 8.3 MG/DL (8.3-10.6); CREATININE FOR GFR 1.69 MG/DL (0.70-1.30); GLOMERULAR FILTRATION RATE 41.4 (>35); POTASSIUM SERUM 3.6 MMOL/L (3.5-5.1)
== END ==
LOC: M WUC 08:21
PROVIDERS: ATTEND Nurse Practitioner Family
DX: R19.7 Diarrhea, unspecified (principal)

== ENCOUNTER → 2022-08-07 | Outpatient (CLI) | payer MEDICARE ==
[2022-08-07 10:01] LABS: HEMATOCRIT 37.3 % (42.0-52.0); HEMOGLOBIN 12.1 g/dl (13.5-17.5); MEAN CORPUSCULAR HEMOGLOBIN 30.6 pg (27.0-33.0); MEAN CORPUSCULAR HGB CONC 32.4 g/dl (32.0-36.5); MEAN CORPUSCULAR VOLUME 94.2 fl (80.0-96.0); PLATELET COUNT, AUTOMATED 176 10^3/uL (150-450); RED BLOOD COUNT 3.96 10^6/uL (4.30-6.10); WHITE BLOOD COUNT 6.9 10^3/uL (4.0-10.0)
[2022-08-07 10:37] LABS: IMMUNOGLOBULIN A 100.5 MG/DL (40-350)
[2022-08-07 10:42] LABS: THYROID STIMULATING HORMONE 1.941 uIU/ML (0.55-4.78)
[2022-08-07 10:43] LABS: FREE T4 1.11 NG/DL (0.89-1.76)
[2022-08-09 16:13] LABS: GASTRIN 23 pg/mL (0-115); TISSUE TRANSGLUTAMINASE IgA <2 U/mL (0-3)
== END ==
LOC: M WUC 08:23
PROVIDERS: ATTEND Physician Assistant Medical
DX: R19.7 Diarrhea, unspecified (principal); R63.4 Abnormal weight loss

== ENCOUNTER → 2022-08-09 | Outpatient (REF) | payer MEDICARE | LOC: M SFHCCLAY 09:26 | PROVIDERS: ATTEND Physician Assistant | DX: R19.7 Diarrhea, unspecified (principal) ==

== ENCOUNTER → 2022-08-09 | Outpatient (REF) | payer MEDICARE | LOC: M LAB REF 09:28 | PROVIDERS: ATTEND Physician Assistant Medical | DX: R19.7 Diarrhea, unspecified (principal) ==

== ENCOUNTER → 2022-10-05 | Outpatient (REF) | payer MEDICARE ==
[~2022-10-05] MED LIST changes: +BELS1TAB2 PO; +ERGO500029 PO; +ISOS1TAB36 PO; +LOSA25TA13 PO; +PEPC10TA6 PO; +SERT50TA29 PO; +THIA100T7 PO
[2022-10-05 18:23] LABS: CALCIUM LEVEL 8.8 MG/DL (8.3-10.6); CREATININE FOR GFR 1.97 MG/DL (0.70-1.30); GLOMERULAR FILTRATION RATE 34.7 (>35); POTASSIUM SERUM 5.1 MMOL/L (3.5-5.1)
== END ==
LOC: M LABDRAWC 17:30
DX: I25.10 Atherosclerotic heart disease of native coronary artery without angina pectoris (principal)

== ENCOUNTER → 2022-11-28 | Outpatient (REF) | payer MEDICARE ==
[~2022-11-28] MED LIST changes: -CEFD300C41 PO; +CEFD300C42 PO
[2022-11-28 18:33] LABS: BILIRUBIN,TOTAL 0.5 MG/DL (0.3-1.2); CALCIUM LEVEL 9.2 MG/DL (8.3-10.6); CREATININE FOR GFR 1.47 MG/DL (0.70-1.30); GLOMERULAR FILTRATION RATE 48.6 (>35); MAGNESIUM LEVEL 2.1 MG/DL (1.8-2.4); POTASSIUM SERUM 4.2 MMOL/L (3.5-5.1); TOTAL PROTEIN 6.6 G/DL (5.7-8.2)
== END ==
LOC: M SFHCCLAY 10:54
PROVIDERS: ATTEND Nurse Practitioner Family
DX: I25.10 Atherosclerotic heart disease of native coronary artery without angina pectoris (principal)

== ENCOUNTER → 2023-03-26 | Outpatient (CLI) | payer MEDICARE, OTHER ==
[~2023-03-26] MED LIST changes: +CEFD1CAP9 PO; -CEFD300C42 PO
[2023-03-26 10:34] LABS: BASO % 0.6 % (0.0-1.0); EOS # 0.2 10^3/uL (0.0-0.5); HEMATOCRIT 38.5 % (42.0-52.0); HEMOGLOBIN 12.6 g/dl (13.5-17.5); LYMPH % 14.4 % (24.0-44.0); MEAN CORPUSCULAR HEMOGLOBIN 30.2 pg (27.0-33.0); MEAN CORPUSCULAR HGB CONC 32.7 g/dl (32.0-36.5); MEAN CORPUSCULAR VOLUME 92.3 fl (80.0-96.0); MONO # 0.5 10^3/uL (0.0-0.8); MONO % 7.1 % (2.0-8.0); NEUTROPHILS # 4.9 10^3/uL (1.5-8.5); NEUTROPHILS % 74.6 % (36.0-66.0); PLATELET COUNT, AUTOMATED 166 10^3/uL (150-450); RED BLOOD COUNT 4.17 10^6/uL (4.30-6.10); WHITE BLOOD COUNT 6.6 10^3/uL (4.0-10.0)
[2023-03-26 11:09] LABS: HEMOGLOBIN A1c 5.8 % (4.0-6.0)
[2023-03-26 11:19] LABS: ALBUMIN 3.7 G/DL (3.2-5.2); BILIRUBIN,TOTAL 0.5 MG/DL (0.3-1.2); CALCIUM LEVEL 9.1 MG/DL (8.3-10.6); CHOLESTEROL RISK RATIO 3.13 (<5); CREATININE FOR GFR 1.81 MG/DL (0.70-1.30); GLOMERULAR FILTRATION RATE 38.1 (>35); HDL CHOLESTEROL 44.4 MG/DL (>40); NON-HDL-C 94.6 MG/DL; POTASSIUM SERUM 4.1 MMOL/L (3.5-5.1); TOTAL PROTEIN 6.3 G/DL (5.7-8.2)
[2023-03-26 11:20] LABS: TOTAL 25(OH) VITAMIN D 92.2 NG/ML (20.0-100.0)
== END ==
LOC: M WUC 08:40
PROVIDERS: ATTEND Nurse Practitioner Family
DX: I25.10 Atherosclerotic heart disease of native coronary artery without angina pectoris (principal); E78.2 Mixed hyperlipidemia; C85.10 Unspecified B-cell lymphoma, unspecified site; E11.9 Type 2 diabetes mellitus without complications; E55.9 Vitamin D deficiency, unspecified

== ENCOUNTER → 2023-04-29 | Outpatient (REF) | payer MEDICARE, OTHER ==
[2023-04-29 13:48] LABS: HDL CHOLESTEROL 40.4 MG/DL (>40); LDL CHOLESTEROL 89.4 MG/DL (<100); NON-HDL-C 121.6 MG/DL
== END ==
LOC: M LABWUC 10:18
PROVIDERS: ATTEND Family Medicine
DX: E78.2 Mixed hyperlipidemia (principal)

== ENCOUNTER → 2023-07-25 | Outpatient (REF) | payer MEDICARE ==
[2023-07-25 18:17] LABS: BASO % 0.6 % (0.0-1.0); EOS # 0.1 10^3/uL (0.0-0.5); HEMATOCRIT 41.1 % (42.0-52.0); LYMPH # 1.3 10^3/uL (1.5-5.0); MEAN CORPUSCULAR HEMOGLOBIN 31.5 pg (27.0-33.0); MEAN CORPUSCULAR HGB CONC 34.1 g/dl (32.0-36.5); MEAN CORPUSCULAR VOLUME 92.6 fl (80.0-96.0); MONO # 0.6 10^3/uL (0.0-0.8); MONO % 9.4 % (2.0-8.0); NEUTROPHILS # 4.5 10^3/uL (1.5-8.5); NEUTROPHILS % 68.4 % (36.0-66.0); PLATELET COUNT, AUTOMATED 178 10^3/uL (150-450); RED BLOOD COUNT 4.44 10^6/uL (4.30-6.10); WHITE BLOOD COUNT 6.6 10^3/uL (4.0-10.0)
[2023-07-25 18:35] LABS: HEMOGLOBIN A1c 5.4 % (4.0-6.0)
[2023-07-25 18:45] LABS: BILIRUBIN,TOTAL 0.5 MG/DL (0.3-1.2); CHOLESTEROL RISK RATIO 2.72 (<5); CREATININE FOR GFR 1.77 MG/DL (0.70-1.30); GLOMERULAR FILTRATION RATE 39.1 (>35); HDL CHOLESTEROL 51.4 MG/DL (>40); NON-HDL-C 88.6 MG/DL; POTASSIUM SERUM 4.7 MMOL/L (3.5-5.1); TOTAL PROTEIN 6.6 G/DL (5.7-8.2)
== END ==
LOC: M SFHCCLAY 11:43
PROVIDERS: ATTEND Nurse Practitioner Family
DX: Z00.00 Encounter for general adult medical examination without abnormal findings (principal); I25.10 Atherosclerotic heart disease of native coronary artery without angina pectoris; E11.9 Type 2 diabetes mellitus without complications; N18.32 Chronic kidney disease, stage 3b; F41.8 Other specified anxiety disorders; C85.10 Unspecified B-cell lymphoma, unspecified site; K52.9 Noninfective gastroenteritis and colitis, unspecified

== ENCOUNTER → 2023-10-04 | Outpatient (CLI) | payer MEDICARE | LOC: M RAD 10:50 | PROVIDERS: ATTEND Internal Medicine Cardiovascular Disease | DX: I25.9 Chronic ischemic heart disease, unspecified (principal); I70.203 Unspecified atherosclerosis of native arteries of extremities, bilateral legs; Z95.1 Presence of aortocoronary bypass graft; Z82.49 Family history of ischemic heart disease and other diseases of the circulatory system ==

== ENCOUNTER → 2024-01-13 | Outpatient (CLI) | payer MEDICARE ==
[~2024-01-13] MED LIST changes: +GABA-1172 PO; -GABA-282 PO
[2024-01-13 12:29] LABS: CREATININE FOR GFR 1.81 MG/DL (0.70-1.30); GLOMERULAR FILTRATION RATE 38.1 (>35)
== END ==
LOC: M WUC 08:58
PROVIDERS: ATTEND Physician Assistant
DX: I70.213 Atherosclerosis of native arteries of extremities with intermittent claudication, bilateral legs (principal)

== ENCOUNTER → 2024-01-24 | Outpatient (REF) | payer MEDICARE ==
[2024-01-24 18:03] LABS: HEMOGLOBIN A1c 5.6 % (4.0-6.0)
[2024-01-24 18:16] LABS: ALBUMIN 3.7 G/DL (3.2-5.2); BILIRUBIN,TOTAL 0.4 MG/DL (0.3-1.2); CALCIUM LEVEL 9.6 MG/DL (8.3-10.6); CHOLESTEROL RISK RATIO 2.29 (<5); CREATININE FOR GFR 1.93 MG/DL (0.70-1.30); GLOMERULAR FILTRATION RATE 35.4 (>35); HDL CHOLESTEROL 42.2 MG/DL (>40); LDL CHOLESTEROL 35.8 MG/DL (<100); NON-HDL-C 54.8 MG/DL; POTASSIUM SERUM 4.9 MMOL/L (3.5-5.1); TOTAL PROTEIN 6.5 G/DL (5.7-8.2)
[2024-01-24 18:20] LABS: FREE T4 1.19 NG/DL (0.89-1.76); THYROID STIMULATING HORMONE 2.473 uIU/ML (0.55-4.78)
== END ==
LOC: M SFHCCLAY 09:41
PROVIDERS: ATTEND Nurse Practitioner Family
DX: I70.202 Unspecified atherosclerosis of native arteries of extremities, left leg (principal); E78.2 Mixed hyperlipidemia; E11.22 Type 2 diabetes mellitus with diabetic chronic kidney disease; I25.10 Atherosclerotic heart disease of native coronary artery without angina pectoris; N18.32 Chronic kidney disease, stage 3b; C85.10 Unspecified B-cell lymphoma, unspecified site; K52.9 Noninfective gastroenteritis and colitis, unspecified

== ENCOUNTER → 2024-03-16 | Outpatient (CLI) | payer MEDICARE ==
[2024-03-16 12:21] LABS: HEMATOCRIT 40.5 % (42.0-52.0); HEMOGLOBIN 13.2 g/dl (13.5-17.5); MEAN CORPUSCULAR HEMOGLOBIN 30.8 pg (27.0-33.0); MEAN CORPUSCULAR HGB CONC 32.6 g/dl (32.0-36.5); MEAN CORPUSCULAR VOLUME 94.4 fl (80.0-96.0); PLATELET COUNT, AUTOMATED 156 10^3/uL (150-450); RED BLOOD COUNT 4.29 10^6/uL (4.30-6.10)
[2024-03-16 12:28] LABS: INR 0.97; PARTIAL THROMBOPLASTIN TIME 28.5 SECONDS (24.8-34.2); PROTHROMBIN TIME 13.2 SECONDS (12.5-14.5)
[2024-03-16 12:55] LABS: CALCIUM LEVEL 8.8 MG/DL (8.3-10.6); CREATININE FOR GFR 1.86 MG/DL (0.70-1.30); GLOMERULAR FILTRATION RATE 36.9 (>35); POTASSIUM SERUM 4.4 MMOL/L (3.5-5.1)
== END ==
LOC: M WUC 08:59
PROVIDERS: ATTEND Physician Assistant
DX: Z01.818 Encounter for other preprocedural examination (principal); D69.8 Other specified hemorrhagic conditions

== ENCOUNTER → 2024-09-23 | Outpatient (CLI) | payer MEDICARE ==
[~2024-09-23] MED LIST changes: -PRAV40TA2 PO; +PRAV40TA85 PO
== END ==
LOC: M PLAIMG 09:21
DX: M54.17 Radiculopathy, lumbosacral region (principal); M47.896 Other spondylosis, lumbar region

== ENCOUNTER → 2024-10-13 | Outpatient (REF) | payer MEDICARE ==
[2024-10-13 19:17] LABS: BASO # 0.1 10^3/uL (0.0-0.2); BASO % 0.9 % (0.0-1.0); EOS # 0.1 10^3/uL (0.0-0.5); EOS % 1.9 % (0.0-3.0); LYMPH # 1.2 10^3/uL (1.5-5.0); LYMPH % 18.5 % (24.0-44.0); MONO # 0.5 10^3/uL (0.0-0.8); MONO % 7.4 % (2.0-8.0); NEUTROPHILS # 4.5 10^3/uL (1.5-8.5); NEUTROPHILS % 71.0 % (36.0-66.0); PLATELET COUNT, AUTOMATED 167 10^3/uL (150-450)
[2024-10-13 19:20] LABS: ALT/SGPT 17.0 U/L (7.0-40); AST/SGOT 20.0 U/L (<34); CALCIUM LEVEL 9.4 MG/DL (8.3-10.6); CARBON DIOXIDE LEVEL 30.0 MMOL/L (20-31); CHLORIDE LEVEL 104.0 MMOL/L (98-107); CHOLESTEROL LEVEL 126.0 MG/DL (<200); CHOLESTEROL RISK RATIO 2.39 (<5); CREATININE FOR GFR 2.12 MG/DL (0.70-1.30); GLOMERULAR FILTRATION RATE 29.8 (>35); LDL CHOLESTEROL 36.9 MG/DL (<100); NON-HDL-C 73.3 MG/DL; POTASSIUM SERUM 4.6 MMOL/L (3.5-5.1); SODIUM LEVEL 144.0 MMOL/L (136-145); TRIGLYCERIDES LEVEL 182.0 MG/DL (<150)
[2024-10-13 19:33] LABS: ESTIMATED AVERAGE GLUCOSE 120.0 MG/DL (60-110)
== END ==
LOC: M SFHCCLAY 13:59
PROVIDERS: ATTEND Nurse Practitioner Family
DX: E11.22 Type 2 diabetes mellitus with diabetic chronic kidney disease (principal); I70.202 Unspecified atherosclerosis of native arteries of extremities, left leg; E78.2 Mixed hyperlipidemia; I25.10 Atherosclerotic heart disease of native coronary artery without angina pectoris; N18.32 Chronic kidney disease, stage 3b; C85.10 Unspecified B-cell lymphoma, unspecified site

== ENCOUNTER 2024-10-15 10:06 | Outpatient (RCR) | payer MEDICARE | END 2024-10-18 | LOC: M PT 10:06 | PROVIDERS: ATTEND Physician Assistant | DX: M54.17 Radiculopathy, lumbosacral region (principal) ==

== ENCOUNTER 2024-11-05 09:15 | Outpatient (RCR) | payer MEDICARE | END 2024-11-17 | LOC: M PT 09:15 | PROVIDERS: ATTEND Physician Assistant | DX: M54.17 Radiculopathy, lumbosacral region (principal) ==

== ENCOUNTER 2024-12-10 01:40 | Observation (INO) | payer MEDICARE ==
[~2024-12-10] VITALS: Ht 160 cm; Wt 64.7 kg
[2024-12-10 02:41] LABS: CALCIUM LEVEL 8.7 MG/DL (8.3-10.6); CARBON DIOXIDE LEVEL 21 MMOL/L (20-31); CHLORIDE LEVEL 105 MMOL/L (98-107); CREATININE FOR GFR 1.86 MG/DL (0.70-1.30); GLOMERULAR FILTRATION RATE 34.8 (>35); POTASSIUM SERUM 4.0 MMOL/L (3.5-5.1); SODIUM LEVEL 141 MMOL/L (136-145)
[2024-12-10 05:17] LABS: PLATELET COUNT, AUTOMATED 176 10^3/uL (150-450)
[2024-12-10 07:53] LABS: C REACTIVE PROTEIN QUANTITATIV < 0.50 MG/DL (<1.0)
[2024-12-10] MEDS ORDERED: ACETAMINOPHEN *IV* 1,000 MG in IV 1 EA IV ONE (08:05)
[2024-12-10] MEDS: ONDANSETRON 4MG/2ML VIAL IV ONE (08:18)
[2024-12-10] MEDS: ACETAMINOPHEN *IV* 1,000 MG in IV 1 EA IV ONE (08:19)
[2024-12-10] MEDS: MORPHINE 4 MG/ML 1 ML VIAL IV ONE ×2 (09:06→16:23)
[2024-12-10 09:52] LABS: CK-MB VALUE MASS 4.1 NG/ML (<3.6)
[2024-12-10 09:55] LABS: CPK CREATINE PHOSPHOKINASE 80.0 U/L (46-171); MB/CK RELATIVE INDEX 5.12 (< OR =4)
[2024-12-10] MEDS ORDERED: REPA140I2 SC (14:16)
[2024-12-10] MEDS ORDERED: AMLO1TAB24 PO (14:16)
[2024-12-10] MEDS ORDERED: POTA99CA2 PO (14:16)
[2024-12-10] MEDS ORDERED: HOME MED LIST COMPLETE! XX SCH (14:20)
[2024-12-10 14:51] LABS: CK-MB VALUE MASS 3.4 NG/ML (<3.6)
[2024-12-10 14:52] LABS: CPK CREATINE PHOSPHOKINASE 80.0 U/L (46-171); MB/CK RELATIVE INDEX 4.25 (< OR =4)
[2024-12-10] MEDS ORDERED: ASPIRIN 325 MG TAB PO ONE (16:40)
[2024-12-10] MEDS ORDERED: MOM 30 ML SUSPENSION UDC PO PRN (17:00)
[2024-12-10] MEDS ORDERED: MAALOX 30 ML SUSP *UDC PO PRN (17:00)
[2024-12-10] MEDS: amLODIPine 5 MG TAB PO ONE (17:39)
[2024-12-10] MEDS: THIAMINE 100 MG TAB PO ONE (17:40)
[2024-12-10] MEDS: ASPIRIN 81 MG ENTERIC TABLET PO ONE (17:40)
[2024-12-10] MEDS: LIDOCAINE 5% PATCH TD ONE (20:30)
[2024-12-10] MEDS ORDERED: oxyCODONE 15MG CR TAB PO SCH (21:00)
[2024-12-11] MEDS: MORPHINE 2 MG/ML 1 ML VIAL IV PRN (03:12)
[2024-12-11] MEDS: THIAMINE 100 MG TAB PO SCH (08:26)
[2024-12-11] MEDS: amLODIPine 5 MG TAB PO SCH (08:27)
[2024-12-11] MEDS: ASPIRIN 81 MG ENTERIC TABLET PO SCH (08:27)
[2024-12-11] MEDS: ENOXAPARIN 30 MG/0.3 ML SYRINGE (J1650 PER 10MG) SC SCH (08:28)
[2024-12-11] MEDS: ANALGESIC BALM CRM 3 OZ TOP SCH (09:37)
[2024-12-11] MEDS: MORPHINE 4 MG/ML 1 ML VIAL IV PRN (11:21)
[2024-12-11 14:13] VITALS: BP 160/80; TEMP 97.5; O2SAT 95
[2024-12-11] MEDS: FAMOTIDINE 20 MG TAB PO ONE (16:22)
[2024-12-11 16:47] VITALS: O2SAT 91
[2024-12-11] MEDS: LIDOCAINE 5% PATCH TD SCH (20:13)
[2024-12-11 20:36] VITALS: BP 166/80; TEMP 97.5; O2SAT 95
[2024-12-11] MEDS: traZODone 50 MG TAB PO PRN (23:46)
[2024-12-12] MEDS: ACETAMINOPHEN 325 MG TAB PO PRN (02:30)
[2024-12-12 04:15] VITALS: BP 167/82; TEMP 97.5; O2SAT 96
[2024-12-12] MEDS: amLODIPine 10 MG TAB PO SCH (08:08)
[2024-12-12] MEDS: FAMOTIDINE 20 MG TAB PO SCH (08:08)
[2024-12-12 08:15] LABS: CALCIUM LEVEL 8.9 MG/DL (8.3-10.6); CARBON DIOXIDE LEVEL 25.0 MMOL/L (20-31); CHLORIDE LEVEL 104.0 MMOL/L (98-107); CREATININE FOR GFR 1.98 MG/DL (0.70-1.30); GLOMERULAR FILTRATION RATE 32.3 (>35); MAGNESIUM LEVEL 2.1 MG/DL (1.8-2.4); POTASSIUM SERUM 4.5 MMOL/L (3.5-5.1); SODIUM LEVEL 141.0 MMOL/L (136-145)
[2024-12-12 12:00] VITALS: BP 161/79; TEMP 97.3; O2SAT 95
[2024-12-12] MEDS: NS (Normal Saline) 0.9% 1,000 ML IV SCH (16:00)
[2024-12-12] MEDS ORDERED: PILL CUTTER 1 EACH XX PRN (21:10)
[2024-12-12 21:16] VITALS: BP 163/79; TEMP 97.5; O2SAT 93
[2024-12-12] MEDS: MORPHINE SULFATE TAB IMM. REL. 30 MG PO PRN (23:56)
[2024-12-13 04:36] VITALS: BP 158/80; TEMP 97.5; O2SAT 95
[2024-12-13 09:41] LABS: CALCIUM LEVEL 7.9 MG/DL (8.3-10.6); CARBON DIOXIDE LEVEL 23.0 MMOL/L (20-31); CHLORIDE LEVEL 109.0 MMOL/L (98-107); CREATININE FOR GFR 1.81 MG/DL (0.70-1.30); GLOMERULAR FILTRATION RATE 36.0 (>35); MAGNESIUM LEVEL 1.9 MG/DL (1.8-2.4); POTASSIUM SERUM 4.0 MMOL/L (3.5-5.1); SODIUM LEVEL 142.0 MMOL/L (136-145)
[2024-12-13 12:00] VITALS: BP 164/77; TEMP 97.3; O2SAT 95
[2024-12-13] MEDS: **hydrALAZINE** 10 MG TAB PO ONE (13:33)
[2024-12-13] MEDS ORDERED: MORPHINE 4 MG/ML 1 ML VIAL IV PRN (16:00)
[2024-12-13 20:27] VITALS: BP 162/77; TEMP 97.5; O2SAT 93
[2024-12-13] MEDS: **hydrALAZINE** 10 MG TAB PO SCH (21:06)
[2024-12-14 00:08] VITALS: BP 139/89; TEMP 97.3; O2SAT 94
[2024-12-14] MEDS: MORPHINE SULFATE TAB IMM. REL. 15 MG PO PRN (02:44)
[2024-12-14 03:56] VITALS: BP 156/75; TEMP 98.1; O2SAT 98
[2024-12-14 06:33] LABS: CALCIUM LEVEL 8.3 MG/DL (8.3-10.6); CARBON DIOXIDE LEVEL 24.0 MMOL/L (20-31); CHLORIDE LEVEL 108.0 MMOL/L (98-107); CREATININE FOR GFR 1.9 MG/DL (0.70-1.30); GLOMERULAR FILTRATION RATE 33.9 (>35); MAGNESIUM LEVEL 2.0 MG/DL (1.8-2.4); POTASSIUM SERUM 4.2 MMOL/L (3.5-5.1); SODIUM LEVEL 142.0 MMOL/L (136-145)
[2024-12-14] MEDS ORDERED: **hydrALAZINE** 10 MG TAB PO ONE ×2 (11:35→12:20)
[2024-12-14 12:00] VITALS: BP 158/72; TEMP 97.5; O2SAT 94
[2024-12-14 12:28] VITALS: BP 158/72
[2024-12-14] MEDS: **hydrALAZINE** 10 MG TAB PO ONE (12:28)
[2024-12-14 13:32] VITALS: BP 138/67
[2024-12-14] MEDS ORDERED: AMLO1TAB24 PO (13:40)
[2024-12-14] MEDS ORDERED: HYDR25TA87 PO (13:40)
[2024-12-14] MEDS ORDERED: MORP15TA2 PO (13:40)
== END 2024-12-14 15:37 | disposition home or self-care (01) ==
LOC: M ED 01:40 → M ED INP 01:41 → M MSPAV 12-11 14:09
PROVIDERS: ADMIT Student in an Organized Health Care Education/Training Program; ATTEND Student in an Organized Health Care Education/Training Program
DX: M48.061 Spinal stenosis, lumbar region without neurogenic claudication (principal); R53.81 Other malaise; I10 Essential (primary) hypertension; E78.5 Hyperlipidemia, unspecified; I25.2 Old myocardial infarction; Z98.61 Coronary angioplasty status; Z95.1 Presence of aortocoronary bypass graft; N18.30 Chronic kidney disease, stage 3 unspecified; Z79.82 Long term (current) use of aspirin; Z79.899 Other long term (current) drug therapy
CPT/HCPCS: 36415; 71045; 72110; 72148; 73502; 73552; 73590; 80048; 82550; 82553; 83735; 84145; 84484; 85027; 85652; 86140; 93005; 93041; 93971; 96361; 96372; 96374; 96375; 96376; 97116; 97161; 99285; G0378; J0131; J1650; J2405

== ENCOUNTER → 2024-12-25 | Outpatient (REF) | payer MEDICARE ==
[~2024-12-25] MED LIST changes: +AMLO1TAB24 PO; +HYDR25TA87 PO; +POTA99CA2 PO; +REPA140I2 SC
[2024-12-25 17:19] LABS: BASO # 0.0 10^3/uL (0.0-0.2); BASO % 0.3 % (0.0-1.0); EOS # 0.2 10^3/uL (0.0-0.5); EOS % 1.3 % (0.0-3.0); LYMPH # 0.9 10^3/uL (1.5-5.0); LYMPH % 7.5 % (24.0-44.0); MONO # 0.7 10^3/uL (0.0-0.8); MONO % 5.6 % (2.0-8.0); NEUTROPHILS # 10.1 10^3/uL (1.5-8.5); NEUTROPHILS % 84.7 % (36.0-66.0); PLATELET COUNT, AUTOMATED 228 10^3/uL (150-450)
[2024-12-25 17:26] LABS: ALT/SGPT 15.0 U/L (7.0-40); AST/SGOT 15.0 U/L (<34); CALCIUM LEVEL 8.8 MG/DL (8.3-10.6); CARBON DIOXIDE LEVEL 29.0 MMOL/L (20-31); CHLORIDE LEVEL 104.0 MMOL/L (98-107); CREATININE FOR GFR 2.17 MG/DL (0.70-1.30); GLOMERULAR FILTRATION RATE 28.9 (>35); POTASSIUM SERUM 4.5 MMOL/L (3.5-5.1); SODIUM LEVEL 141.0 MMOL/L (136-145)
== END ==
LOC: M SFHCCLAY 10:18
PROVIDERS: ATTEND Nurse Practitioner Family
DX: J06.9 Acute upper respiratory infection, unspecified (principal); I12.9 Hypertensive chronic kidney disease with stage 1 through stage 4 chronic kidney disease, or unspecified chronic kidney disease; M48.061 Spinal stenosis, lumbar region without neurogenic claudication

== ENCOUNTER 2025-01-01 13:54 | Emergency (ER) | payer MEDICARE ==
[~2025-01-01] VITALS: Ht 160 cm; Wt 62.4 kg
[2025-01-01 14:49] LABS: BASO # 0.0 10^3/uL (0.0-0.2); BASO % 0.4 % (0.0-1.0); EOS # 0.1 10^3/uL (0.0-0.5); EOS % 0.6 % (0.0-3.0); LYMPH # 1.0 10^3/uL (1.5-5.0); LYMPH % 10.7 % (24.0-44.0); MONO # 0.6 10^3/uL (0.0-0.8); MONO % 6.2 % (2.0-8.0); NEUTROPHILS # 7.6 10^3/uL (1.5-8.5); NEUTROPHILS % 81.6 % (36.0-66.0); PLATELET COUNT, AUTOMATED 210 10^3/uL (150-450)
[2025-01-01 15:16] LABS: CK-MB VALUE MASS 2.6 NG/ML (<3.6)
[2025-01-01 15:18] LABS: ALT/SGPT 12.0 U/L (7.0-40); AST/SGOT 15.0 U/L (<34); CALCIUM LEVEL 8.7 MG/DL (8.3-10.6); CARBON DIOXIDE LEVEL 29.0 MMOL/L (20-31); CHLORIDE LEVEL 106.0 MMOL/L (98-107); CPK CREATINE PHOSPHOKINASE 46.0 U/L (46-171); CREATININE FOR GFR 2.08 MG/DL (0.70-1.30); GLOMERULAR FILTRATION RATE 30.4 (>35); MAGNESIUM LEVEL 2.2 MG/DL (1.8-2.4); MB/CK RELATIVE INDEX 5.65 (< OR =4); POTASSIUM SERUM 4.5 MMOL/L (3.5-5.1); SODIUM LEVEL 143.0 MMOL/L (136-145)
[2025-01-01] MEDS: LIDOCAINE 5% PATCH TD ONE (17:18)
[2025-01-01 20:17] VITALS: BP 113/81; TEMP 98.5; O2SAT 97
[2025-01-02] MEDS ORDERED: MORP15TA2 PO (16:39)
[2025-01-02] MEDS ORDERED: ASPI325T57 PO (16:39)
[2025-01-02] MEDS ORDERED: RA M10TA PO (16:39)
[2025-01-02] MEDS ORDERED: LIDO1PAD TOP (16:39)
[2025-01-02] MEDS ORDERED: FAMO20TA4 PO (16:39)
== END 2025-01-01 21:06 | disposition home or self-care (01) ==
LOC: M ED 13:54
DX: M54.50 Low back pain, unspecified (principal); M79.605 Pain in left leg; I44.0 Atrioventricular block, first degree; R00.1 Bradycardia, unspecified; I45.10 Unspecified right bundle-branch block; I10 Essential (primary) hypertension; I25.2 Old myocardial infarction; F10.10 Alcohol abuse, uncomplicated; Z79.1 Long term (current) use of non-steroidal anti-inflammatories (NSAID); Z79.899 Other long term (current) drug therapy; Z79.82 Long term (current) use of aspirin

== ENCOUNTER 2025-01-02 10:51 | Inpatient (IN) | payer MEDICARE ==
[~2025-01-02] VITALS: Ht 157.5 cm; Wt 56.0 kg
[2025-01-02 11:43] LABS: BASO # 0.0 10^3/uL (0.0-0.2); BASO % 0.4 % (0.0-1.0); EOS # 0.0 10^3/uL (0.0-0.5); EOS % 0.4 % (0.0-3.0); LYMPH # 0.9 10^3/uL (1.5-5.0); LYMPH % 7.7 % (24.0-44.0); MONO # 0.5 10^3/uL (0.0-0.8); MONO % 4.5 % (2.0-8.0); NEUTROPHILS # 9.9 10^3/uL (1.5-8.5); NEUTROPHILS % 86.5 % (36.0-66.0); PLATELET COUNT, AUTOMATED 216 10^3/uL (150-450)
[2025-01-02] MEDS: NS (Normal Saline) 0.9% 1,000 ML IV ONE (11:43)
[2025-01-02 11:57] LABS: CK-MB VALUE MASS 3.2 NG/ML (<3.6)
[2025-01-02 12:01] LABS: FREE T4 1.28 NG/DL (0.89-1.76)
[2025-01-02 12:10] LABS: ALT/SGPT 14.0 U/L (7.0-40); AST/SGOT 19.0 U/L (<34); CALCIUM LEVEL 9.1 MG/DL (8.3-10.6); CARBON DIOXIDE LEVEL 27.0 MMOL/L (20-31); CHLORIDE LEVEL 105.0 MMOL/L (98-107); CPK CREATINE PHOSPHOKINASE 48.0 U/L (46-171); CREATININE FOR GFR 2.06 MG/DL (0.70-1.30); GLOMERULAR FILTRATION RATE 30.8 (>35); MAGNESIUM LEVEL 2.3 MG/DL (1.8-2.4); MB/CK RELATIVE INDEX 6.66 (< OR =4); POTASSIUM SERUM 4.5 MMOL/L (3.5-5.1); SODIUM LEVEL 142.0 MMOL/L (136-145)
[2025-01-02 12:55] LABS: CK-MB VALUE MASS 3.2 NG/ML (<3.6)
[2025-01-02 12:58] LABS: CPK CREATINE PHOSPHOKINASE 37.0 U/L (46-171); MB/CK RELATIVE INDEX 8.64 (< OR =4)
[2025-01-02 13:18] LABS: KETONE, URINE AUTO RFX NEGATIVE (NEGATIVE); LEUKOCYTE ESTERASE UR AUTO RFX NEGATIVE (NEGATIVE); NITRITE, URINE AUTO RFX NEGATIVE (NEGATIVE); RBC, URINE AUTO RFX 0 /HPF (0-3); SQUAM EPITHELIAL CELL UR AURFX 0 /HPF (0-6); WBC, URINE AUTO RFX 0 /HPF (0-3)
[2025-01-02 14:53] LABS: C REACTIVE PROTEIN QUANTITATIV 0.83 MG/DL (<1.0)
[2025-01-02 14:55] LABS: T UPTAKE 40.7 % (22.5-37.0); THYROXINE (T4) 7.3 UG/DL (4.5-10.9)
[2025-01-02 15:10] VITALS: BP 176/83; TEMP 98.4; O2SAT 98
[2025-01-02 15:10] LABS: SODIUM,RANDOM URINE 106.0 MMOL/L
[2025-01-02] MEDS: NS 0.45% 1,000 ML IV ONE (15:27)
[2025-01-02] MEDS ORDERED: CALCIUM CARBONATE 500 MG CHEW U/D PO PRN (15:45)
[2025-01-02] MEDS ORDERED: MAALOX 30 ML SUSP *UDC PO PRN (15:45)
[2025-01-02] MEDS ORDERED: MELATONIN 10MG TABLET (PATIENT'S OWN MED) PO PRN (15:45)
[2025-01-02] MEDS ORDERED: NALOXONE INJ 0.4 MG/1 ML VIAL IV PRN (16:25)
[2025-01-02] MEDS ORDERED: PERCOCET 5MG/325MG TAB PO PRN ×2 (16:25)
[2025-01-02] MEDS ORDERED: MELA10TA22 PO (16:39)
[2025-01-02] MEDS ORDERED: ASPI325T57 PO (16:39)
[2025-01-02] MEDS ORDERED: MORP15TA2 PO (16:39)
[2025-01-02] MEDS ORDERED: FAMO20TA4 PO (16:39)
[2025-01-02] MEDS ORDERED: LIDO1PAD TOP (16:39)
[2025-01-02] MEDS ORDERED: HOME MED LIST COMPLETE! XX SCH (16:40)
[2025-01-02 16:48] LABS: VITAMIN B12 LEVEL 712.0 PG/ML (211-911)
[2025-01-02 20:31] VITALS: BP 126/58; TEMP 97.6; O2SAT 97
[2025-01-02] MEDS: traZODone 50 MG TAB PO PRN (20:35)
[2025-01-02] MEDS: ACETAMINOPHEN 325 MG TAB PO PRN (20:36)
[2025-01-02] MEDS ORDERED: FAMOTIDINE 20 MG TAB PO PRN (21:00)
[2025-01-03 03:26] VITALS: BP 132/72; TEMP 98; O2SAT 96
[2025-01-03 06:11] LABS: BASO # 0.0 10^3/uL (0.0-0.2); BASO % 0.6 % (0.0-1.0); EOS # 0.2 10^3/uL (0.0-0.5); EOS % 2.6 % (0.0-3.0); LYMPH # 1.3 10^3/uL (1.5-5.0); LYMPH % 18.2 % (24.0-44.0); MONO # 0.6 10^3/uL (0.0-0.8); MONO % 8.5 % (2.0-8.0); NEUTROPHILS # 4.9 10^3/uL (1.5-8.5); NEUTROPHILS % 69.7 % (36.0-66.0); PLATELET COUNT, AUTOMATED 165 10^3/uL (150-450)
[2025-01-03 06:31] LABS: CALCIUM LEVEL 8.3 MG/DL (8.3-10.6); CARBON DIOXIDE LEVEL 24.0 MMOL/L (20-31); CHLORIDE LEVEL 106.0 MMOL/L (98-107); CREATININE FOR GFR 2.03 MG/DL (0.70-1.30); GLOMERULAR FILTRATION RATE 31.3 (>35); POTASSIUM SERUM 4.3 MMOL/L (3.5-5.1); SODIUM LEVEL 140.0 MMOL/L (136-145)
[2025-01-03] MEDS: ASPIRIN 325 MG TAB PO SCH (08:15)
[2025-01-03] MEDS: THIAMINE 100 MG TAB PO SCH (08:15)
[2025-01-03] MEDS: amLODIPine 10 MG TAB PO SCH (08:16)
[2025-01-03] MEDS: PERCOCET 5MG/325MG TAB PO ONE (08:21)
[2025-01-03 08:27] VITALS: BP_SYST 151; BP_SYST 155; BP_SYST 171; BP_DIAS 71; BP_DIAS 72; BP_DIAS 81
[2025-01-03 12:00] VITALS: BP 146/70; TEMP 97.9; O2SAT 98
[2025-01-03] MEDS: ONDANSETRON 4MG/2ML VIAL IV PRN (12:23)
[2025-01-03 20:45] VITALS: BP 152/72; TEMP 98.7; O2SAT 94
[2025-01-04 03:51] VITALS: BP 161/73; TEMP 98.9; O2SAT 92
[2025-01-04 07:27] LABS: CALCIUM LEVEL 8.4 MG/DL (8.3-10.6); CARBON DIOXIDE LEVEL 24.0 MMOL/L (20-31); CHLORIDE LEVEL 106.0 MMOL/L (98-107); CREATININE FOR GFR 2.11 MG/DL (0.70-1.30); GLOMERULAR FILTRATION RATE 29.9 (>35); POTASSIUM SERUM 4.3 MMOL/L (3.5-5.1); SODIUM LEVEL 140.0 MMOL/L (136-145)
[2025-01-04] MEDS ORDERED: MORPHINE SULFATE TAB IMM. REL. 15 MG PO PRN (08:25)
[2025-01-04] MEDS ORDERED: NALOXONE INJ 0.4 MG/1 ML VIAL IV PRN (08:25)
[2025-01-04] MEDS: OMEPRAZOLE 20MG CAP PO ONE (10:28)
[2025-01-04] MEDS: NITROGLYCERIN 0.4 MG SUBL TABLET SL STA (10:30)
[2025-01-04 10:31] LABS: CK-MB VALUE MASS 2.5 NG/ML (<3.6)
[2025-01-04 10:33] LABS: CPK CREATINE PHOSPHOKINASE 46.0 U/L (46-171); MB/CK RELATIVE INDEX 5.43 (< OR =4)
[2025-01-04 11:37] VITALS: BP 101/65; TEMP 99.1; O2SAT 97
[2025-01-04 12:00] VITALS: BP 130/60; TEMP 98.4; O2SAT 92
[2025-01-04] MEDS: RANOLAZINE 500MG ER TAB PO SCH (12:00)
[2025-01-04 21:34] VITALS: BP 133/63; TEMP 98.8; O2SAT 96
[2025-01-05 03:51] VITALS: BP 159/74; TEMP 98.1; O2SAT 96
[2025-01-05 07:20] LABS: CALCIUM LEVEL 8.6 MG/DL (8.3-10.6); CARBON DIOXIDE LEVEL 23.0 MMOL/L (20-31); CHLORIDE LEVEL 107.0 MMOL/L (98-107); CREATININE FOR GFR 2.06 MG/DL (0.70-1.30); GLOMERULAR FILTRATION RATE 30.8 (>35); POTASSIUM SERUM 3.9 MMOL/L (3.5-5.1); SODIUM LEVEL 142.0 MMOL/L (136-145)
[2025-01-05] MEDS: OMEPRAZOLE 20MG CAP PO SCH (09:03)
[2025-01-05 11:04] VITALS: BP_SYST 106; BP_SYST 135; BP_SYST 79; BP_DIAS 53; BP_DIAS 66; BP_DIAS 71
[2025-01-05 12:00] VITALS: BP 159/79; TEMP 98.4; O2SAT 97
[2025-01-05] MEDS: HEPARIN SOD 5000 UNITS/ML 1 ML VIAL/SYRINGE SQ SCH (21:58)
[2025-01-05 22:30] VITALS: BP 152/72; TEMP 98.7; O2SAT 97
[2025-01-05] MEDS ORDERED: guaiFENesin DM LIQ 10ML UD PO PRN (23:20)
[2025-01-06 05:45] VITALS: BP 132/62; TEMP 98; O2SAT 94
[2025-01-06 06:54] LABS: CALCIUM LEVEL 8.5 MG/DL (8.3-10.6); CARBON DIOXIDE LEVEL 24.0 MMOL/L (20-31); CHLORIDE LEVEL 106.0 MMOL/L (98-107); CREATININE FOR GFR 2.07 MG/DL (0.70-1.30); GLOMERULAR FILTRATION RATE 30.6 (>35); POTASSIUM SERUM 4.0 MMOL/L (3.5-5.1); SODIUM LEVEL 141.0 MMOL/L (136-145)
[2025-01-06] MEDS: BISOPROLOL FUM 2.5 MG PER 1/2 TAB PO SCH ×2 (08:48→09:47)
[2025-01-06 09:46] VITALS: BP_SYST 105; BP_SYST 82; BP_SYST 85; BP_DIAS 55; BP_DIAS 64
[2025-01-06] MEDS: SERTRALINE HCL 50 MG TAB PO SCH (14:47)
[2025-01-06] MEDS: NS (Normal Saline) 0.9% 1,000 ML IV ONE (14:47)
[2025-01-06 20:20] VITALS: BP 140/70; TEMP 98.2; O2SAT 98
[2025-01-06] MEDS: LOPERAMIDE 2 MG CAPLET PO PRN (20:38)
[2025-01-06 21:36] LABS: LYME TOTAL ANTIBODY CIA <= 0.90 Index (<=0.90)
[2025-01-06] MEDS: RAMELTEON 8 MG TAB PO PRN (22:50)
[2025-01-07 03:59] VITALS: BP 100/64; TEMP 99; O2SAT 97
[2025-01-07 06:16] VITALS: BP 126/86; TEMP 100.2; O2SAT 98
[2025-01-07 06:55] LABS: CALCIUM LEVEL 8.6 MG/DL (8.3-10.6); CARBON DIOXIDE LEVEL 24.0 MMOL/L (20-31); CHLORIDE LEVEL 107.0 MMOL/L (98-107); CREATININE FOR GFR 2.12 MG/DL (0.70-1.30); GLOMERULAR FILTRATION RATE 29.8 (>35); POTASSIUM SERUM 3.7 MMOL/L (3.5-5.1); SODIUM LEVEL 143.0 MMOL/L (136-145)
[2025-01-07 08:17] LABS: MAGNESIUM LEVEL 1.9 MG/DL (1.8-2.4)
[2025-01-07 09:25] VITALS: BP 156/78
[2025-01-07] MEDS: TAMSULOSIN 0.4 MG CAP PO SCH (09:29)
[2025-01-07 11:41] VITALS: BP 101/51; TEMP 98.2; O2SAT 98
[2025-01-07] MEDS ORDERED: ANUSOL HC CREAM 30 GM TOP PRN (21:15)
[2025-01-07 21:30] VITALS: BP 117/54; TEMP 98.3; O2SAT 96
[2025-01-08] VITALS (8 sets, daily range): BP systolic 98–178; BP diastolic 48–88; TEMP 97.9–100.4; O2SAT 96–97
[2025-01-08 04:14] LABS: BASO # 0.0 10^3/uL (0.0-0.2); BASO % 0.2 % (0.0-1.0); EOS # 0.1 10^3/uL (0.0-0.5); EOS % 0.8 % (0.0-3.0); LYMPH # 1.0 10^3/uL (1.5-5.0); LYMPH % 8.6 % (24.0-44.0); MONO # 0.7 10^3/uL (0.0-0.8); MONO % 6.2 % (2.0-8.0); NEUTROPHILS # 9.3 10^3/uL (1.5-8.5); NEUTROPHILS % 83.9 % (36.0-66.0); PLATELET COUNT, AUTOMATED 177 10^3/uL (150-450)
[2025-01-08 04:37] LABS: CALCIUM LEVEL 8.4 MG/DL (8.3-10.6); CARBON DIOXIDE LEVEL 22.0 MMOL/L (20-31); CHLORIDE LEVEL 106.0 MMOL/L (98-107); CREATININE FOR GFR 2.07 MG/DL (0.70-1.30); GLOMERULAR FILTRATION RATE 30.6 (>35); MAGNESIUM LEVEL 1.8 MG/DL (1.8-2.4); POTASSIUM SERUM 3.6 MMOL/L (3.5-5.1); SODIUM LEVEL 141.0 MMOL/L (136-145)
[2025-01-08 05:18] LABS: KETONE, URINE AUTO RFX NEGATIVE (NEGATIVE); LEUKOCYTE ESTERASE UR AUTO RFX NEGATIVE (NEGATIVE); MUCUS, URINE RFX SMALL (NEGATIVE); NITRITE, URINE AUTO RFX NEGATIVE (NEGATIVE); RBC, URINE AUTO RFX 1 /HPF (0-3); SQUAM EPITHELIAL CELL UR AURFX 0 /HPF (0-6); WBC, URINE AUTO RFX 0 /HPF (0-3)
[2025-01-08] MEDS: POTASSIUM CHLORIDE 10MEQ SR TABLET PO ONE (09:55)
[2025-01-08] MEDS: NS (Normal Saline) 0.9% 1,000 ML IV SCH (10:02)
[2025-01-09] VITALS (16 sets, daily range): BP systolic 81–184; BP diastolic 53–90; TEMP 98.2–99.5; O2SAT 95–98
[2025-01-09] MEDS: **hydrALAZINE** 10 MG TAB PO ONE (04:43)
[2025-01-09] MEDS: NITROGLYCERIN 0.4 MG SUBL TABLET SL PRN (08:36)
[2025-01-09 08:41] LABS: CALCIUM LEVEL 8.7 MG/DL (8.3-10.6); CARBON DIOXIDE LEVEL 22.0 MMOL/L (20-31); CHLORIDE LEVEL 108.0 MMOL/L (98-107); CREATININE FOR GFR 1.88 MG/DL (0.70-1.30); GLOMERULAR FILTRATION RATE 34.4 (>35); POTASSIUM SERUM 4.3 MMOL/L (3.5-5.1); SODIUM LEVEL 141.0 MMOL/L (136-145)
[2025-01-09] MEDS: RANOLAZINE 500MG ER TAB PO SCH (09:44)
[2025-01-09] MEDS: NS 500 ML IV ONE (09:44)
[2025-01-09] MEDS: VITAMIN D 50,000 UNITS CAPSULE (ERGOCALCIFEROL 1.25MG) PO SCH (09:44)
[2025-01-09 09:58] LABS: BASO # 0.0 10^3/uL (0.0-0.2); BASO % 0.2 % (0.0-1.0); EOS # 0.1 10^3/uL (0.0-0.5); EOS % 1.1 % (0.0-3.0); LYMPH # 1.0 10^3/uL (1.5-5.0); LYMPH % 11.9 % (24.0-44.0); MONO # 0.7 10^3/uL (0.0-0.8); MONO % 7.7 % (2.0-8.0); NEUTROPHILS # 6.7 10^3/uL (1.5-8.5); NEUTROPHILS % 78.5 % (36.0-66.0); PLATELET COUNT, AUTOMATED 172 10^3/uL (150-450)
[2025-01-09 10:05] LABS: MAGNESIUM LEVEL 1.9 MG/DL (1.8-2.4)
[2025-01-09 10:06] LABS: PSA SCREENING 3.61 NG/ML (< 4.00)
[2025-01-09] MEDS: NS (Normal Saline) 0.9% 1,000 ML IV ONE (11:11)
[2025-01-09] MEDS ORDERED: AMIODARONE HCL 360 MG in IV 1 EA IV SCH (11:15)
[2025-01-09] MEDS: cefTRIAXone SOD 2 GM in DEXTROSE 5% (D5W) ADV/MINI-BAG 50 ML IV SCH (15:09)
[2025-01-09] MEDS: METOPROLOL TART 12.5 MG PER 1/2 TAB PO SCH (20:37)
[2025-01-10] VITALS (7 sets, daily range): BP systolic 84–160; BP diastolic 50–87; TEMP 97.3–99.1; O2SAT 95–98
[2025-01-10] MEDS: FUROSEMIDE 40 MG/4 ML VIAL IV ONE (04:38)
[2025-01-10 05:58] LABS: CALCIUM LEVEL 8.4 MG/DL (8.3-10.6); CARBON DIOXIDE LEVEL 23.0 MMOL/L (20-31); CHLORIDE LEVEL 108.0 MMOL/L (98-107); CREATININE FOR GFR 1.82 MG/DL (0.70-1.30); GLOMERULAR FILTRATION RATE 35.7 (>35); MAGNESIUM LEVEL 1.9 MG/DL (1.8-2.4); POTASSIUM SERUM 3.8 MMOL/L (3.5-5.1); SODIUM LEVEL 142.0 MMOL/L (136-145)
[2025-01-10] MEDS ORDERED: ENTER DRUG NAME HERE (PATIENT'S OWN MED) SC SCH (09:00)
[2025-01-11 04:11] VITALS: BP 126/81; TEMP 99.2; O2SAT 97
[2025-01-11 06:22] LABS: CALCIUM LEVEL 8.3 MG/DL (8.3-10.6); CARBON DIOXIDE LEVEL 24.0 MMOL/L (20-31); CHLORIDE LEVEL 105.0 MMOL/L (98-107); CREATININE FOR GFR 1.91 MG/DL (0.70-1.30); GLOMERULAR FILTRATION RATE 33.7 (>35); MAGNESIUM LEVEL 2.0 MG/DL (1.8-2.4); POTASSIUM SERUM 3.9 MMOL/L (3.5-5.1); SODIUM LEVEL 141.0 MMOL/L (136-145)
[2025-01-11 07:50] VITALS: BP 164/72; TEMP 98.7; O2SAT 98
[2025-01-11 10:22] LABS: NT PRO BNP SO 4341 pg/mL (<450)
[2025-01-11 12:01] VITALS: BP 180/74; TEMP 98.9; O2SAT 96
[2025-01-11] MEDS: METOPROLOL TART 12.5 MG PER 1/2 TAB PO ONE (13:00)
[2025-01-11 16:23] VITALS: BP 120/64; TEMP 98.7; O2SAT 97
[2025-01-11 19:39] VITALS: BP 153/70; TEMP 98.4; O2SAT 97
[2025-01-11] MEDS: METOPROLOL TART 25 MG TABLET PO SCH (20:53)
[2025-01-12] VITALS (11 sets, daily range): BP systolic 126–176; BP diastolic 66–86; TEMP 97.2–98.6; O2SAT 94–98
[2025-01-12 06:15] LABS: CALCIUM LEVEL 8.6 MG/DL (8.3-10.6); CARBON DIOXIDE LEVEL 24.0 MMOL/L (20-31); CHLORIDE LEVEL 105.0 MMOL/L (98-107); CREATININE FOR GFR 1.89 MG/DL (0.70-1.30); GLOMERULAR FILTRATION RATE 34.2 (>35); MAGNESIUM LEVEL 2.1 MG/DL (1.8-2.4); POTASSIUM SERUM 3.8 MMOL/L (3.5-5.1); SODIUM LEVEL 141.0 MMOL/L (136-145)
[2025-01-12] MEDS: CEFDINIR 300 MG CAP PO SCH (11:10)
[2025-01-12] MEDS: amLODIPine 10 MG TAB PO ONE (12:20)
[2025-01-12] MEDS: hydrALAZINE 20 MG/ML 1 ML VIAL IV ONE (14:53)
[2025-01-12] MEDS: **hydrALAZINE HCL** 25 MG TAB PO SCH (18:01)
[2025-01-13] VITALS (8 sets, daily range): BP systolic 111–176; BP diastolic 65–87; PULSE 120; TEMP 97.5–98.9; O2SAT 96–98
[2025-01-13 06:16] LABS: CALCIUM LEVEL 8.3 MG/DL (8.3-10.6); CARBON DIOXIDE LEVEL 24.0 MMOL/L (20-31); CHLORIDE LEVEL 106.0 MMOL/L (98-107); CREATININE FOR GFR 1.88 MG/DL (0.70-1.30); GLOMERULAR FILTRATION RATE 34.4 (>35); MAGNESIUM LEVEL 2.0 MG/DL (1.8-2.4); POTASSIUM SERUM 3.8 MMOL/L (3.5-5.1); SODIUM LEVEL 142.0 MMOL/L (136-145)
[2025-01-13] MEDS: hydrALAZINE 20 MG/ML 1 ML VIAL IV ONE (11:09)
[2025-01-13] MEDS: ANUSOL HC 25 MG SUPP PR SCH (16:07)
[2025-01-13] MEDS: **hydrALAZINE HCL** 25 MG TAB PO SCH (17:29)
[2025-01-14] VITALS (13 sets, daily range): BP systolic 94–192; BP diastolic 62–90; TEMP 97.6–98.9; O2SAT 94–100
[2025-01-14 00:51] LABS: CK-MB VALUE MASS 3.3 NG/ML (<3.6)
[2025-01-14 00:52] LABS: CPK CREATINE PHOSPHOKINASE 48.0 U/L (46-171); MB/CK RELATIVE INDEX 6.87 (< OR =4)
[2025-01-14] MEDS ORDERED: PILL CUTTER 1 EACH XX ONE (03:57)
[2025-01-14 05:50] LABS: CALCIUM LEVEL 8.4 MG/DL (8.3-10.6); CARBON DIOXIDE LEVEL 23.0 MMOL/L (20-31); CHLORIDE LEVEL 106.0 MMOL/L (98-107); CREATININE FOR GFR 1.81 MG/DL (0.70-1.30); GLOMERULAR FILTRATION RATE 36.0 (>35); MAGNESIUM LEVEL 2.1 MG/DL (1.8-2.4); POTASSIUM SERUM 3.5 MMOL/L (3.5-5.1); SODIUM LEVEL 141.0 MMOL/L (136-145)
[2025-01-14] MEDS: METOPROLOL 5 MG/5 ML VIAL IV STA (10:34)
[2025-01-14] MEDS: MIDODRINE 2.5 MG TAB PO ONE (10:43)
[2025-01-14 10:57] LABS: VITAMIN B1 LEVEL WHOLE BLOOD 326 nmol/L (78-185)
[2025-01-14 11:28] LABS: CK-MB VALUE MASS 3.4 NG/ML (<3.6)
[2025-01-14 11:30] LABS: CPK CREATINE PHOSPHOKINASE 40.0 U/L (46-171); MB/CK RELATIVE INDEX 8.5 (< OR =4)
[2025-01-14] MEDS: MIDODRINE 5 MG TAB PO ONE (12:00)
[2025-01-14] MEDS: NS 500 ML IV ONE (12:00)
[2025-01-14] MEDS: **hydrALAZINE HCL** 25 MG TAB PO SCH (17:28)
[2025-01-14] MEDS: amLODIPine 5 MG TAB PO SCH (20:41)
[2025-01-15] VITALS (7 sets, daily range): BP systolic 118–184; BP diastolic 68–88; TEMP 98.1–99; O2SAT 95–98
[2025-01-15 06:14] LABS: CALCIUM LEVEL 8.4 MG/DL (8.3-10.6); CARBON DIOXIDE LEVEL 23.0 MMOL/L (20-31); CHLORIDE LEVEL 107.0 MMOL/L (98-107); CREATININE FOR GFR 1.71 MG/DL (0.70-1.30); GLOMERULAR FILTRATION RATE 38.5 (>35); MAGNESIUM LEVEL 2.1 MG/DL (1.8-2.4); POTASSIUM SERUM 3.8 MMOL/L (3.5-5.1); SODIUM LEVEL 142.0 MMOL/L (136-145)
[2025-01-16] VITALS (9 sets, daily range): BP systolic 131–169; BP diastolic 66–90; TEMP 98–99.3; O2SAT 94–98
[2025-01-16 06:15] LABS: CALCIUM LEVEL 8.5 MG/DL (8.3-10.6); CARBON DIOXIDE LEVEL 22.0 MMOL/L (20-31); CHLORIDE LEVEL 106.0 MMOL/L (98-107); CREATININE FOR GFR 1.67 MG/DL (0.70-1.30); GLOMERULAR FILTRATION RATE 39.6 (>35); MAGNESIUM LEVEL 2.1 MG/DL (1.8-2.4); POTASSIUM SERUM 3.9 MMOL/L (3.5-5.1); SODIUM LEVEL 141.0 MMOL/L (136-145)
[2025-01-16] MEDS ORDERED: SERT50TA29 PO (11:19)
[2025-01-16] MEDS ORDERED: TAMS1CAP17 PO (11:19)
[2025-01-16] MEDS ORDERED: ANUSHCSU PR (11:19)
[2025-01-16] MEDS ORDERED: OMEP-173 PO (11:19)
[2025-01-16] MEDS ORDERED: HYDR25TA87 PO (11:19)
[2025-01-16] MEDS ORDERED: THIA100TA PO (11:19)
[2025-01-16] MEDS ORDERED: RAME8TAB2 PO (11:19)
[2025-01-16] MEDS ORDERED: METO1TAB87 PO (11:19)
[2025-01-16] MEDS ORDERED: NITR4TASL SL (11:19)
[2025-01-19 14:19] LABS: NEURON SPECIFIC ENOLASE 15.8 ng/mL (0.0-17.6)
[2025-01-19 16:07] LABS: CHROMOGRANIN A 689 ng/mL (ADULTS: <311)
== END 2025-01-16 20:30 | disposition other institution (70) | DRG 315 ==
LOC: M ED 10:51 → M ED INP 14:20 → M MSPAV 14:59 → M PCU 01-09 11:03
PROVIDERS: ADMIT General Practice; ATTEND Student in an Organized Health Care Education/Training Program
PROC: B246ZZZ Ultrasonography of Right and Left Heart (ICD-10-PCS; principal; 2025-01-03)
DX: T82.897A Other specified complication of cardiac prosthetic devices, implants and grafts, initial encounter (principal); I50.32 Chronic diastolic (congestive) heart failure; I13.0 Hypertensive heart and chronic kidney disease with heart failure and stage 1 through stage 4 chronic kidney disease, or unspecified chronic kidney disease; N17.9 Acute kidney failure, unspecified; I47.19 Other supraventricular tachycardia; E87.20 Acidosis, unspecified; J84.9 Interstitial pulmonary disease, unspecified; F43.21 Adjustment disorder with depressed mood; I25.10 Atherosclerotic heart disease of native coronary artery without angina pectoris; Z95.5 Presence of coronary angioplasty implant and graft; I35.0 Nonrheumatic aortic (valve) stenosis; I73.9 Peripheral vascular disease, unspecified; N18.32 Chronic kidney disease, stage 3b; D41.4 Neoplasm of uncertain behavior of bladder; R26.89 Other abnormalities of gait and mobility; M48.061 Spinal stenosis, lumbar region without neurogenic claudication; G89.29 Other chronic pain; I44.0 Atrioventricular block, first degree; R31.0 Gross hematuria; R63.4 Abnormal weight loss; I16.0 Hypertensive urgency; M25.552 Pain in left hip; K21.9 Gastro-esophageal reflux disease without esophagitis; E11.22 Type 2 diabetes mellitus with diabetic chronic kidney disease; E78.00 Pure hypercholesterolemia, unspecified; G47.00 Insomnia, unspecified; Z98.42 Cataract extraction status, left eye; Z98.41 Cataract extraction status, right eye; E86.0 Dehydration; R62.7 Adult failure to thrive; I95.1 Orthostatic hypotension; M54.16 Radiculopathy, lumbar region; Z79.82 Long term (current) use of aspirin; Z79.899 Other long term (current) drug therapy; Z92.21 Personal history of antineoplastic chemotherapy; Z85.71 Personal history of Hodgkin lymphoma

== ENCOUNTER 2025-02-11 20:43 | Observation (INO) | payer MEDICARE, MEDICAID ==
[~2025-02-11] VITALS: Ht 160 cm; Wt 60.0 kg
[~2025-02-11 20:43] MED LIST changes: +ANUSHCSU PR; +ASPI325T57 PO; +FAMO20TA4 PO; +LIDO1PAD TOP; +MELA10TA30 PO; +METO1TAB87 PO; +OMEP-173 PO; +RAME8TAB2 PO; +TAMS1CAP17 PO; +THIA100TA PO
[2025-02-11] MEDS: MORPHINE 2 MG/ML 1 ML VIAL IV ONE (22:19)
[2025-02-11 22:22] LABS: VENOUS BASE EXCESS -3.0 (-2.0-2.0); VENOUS HCO3 21.1 MMOL/L (23.0-27.0); VENOUS O2 SATURATION 98.5 % (60.0-80.0); VENOUS PARTIAL PRESSURE CO2 34.9 mmHg (38.0-50.0); VENOUS PARTIAL PRESSURE O2 127.1 mmHg (30.0-50.0); VENOUS PH 7.400 UNITS (7.330-7.430); VENOUS STANDARD HCO3 22.0 MMOL/L; VENOUS TOTAL CO2 22.2 MMOL/L (24.0-28.0)
[2025-02-11 22:27] LABS: BASO # 0.1 10^3/uL (0.0-0.2); BASO % 0.5 % (0.0-1.0); EOS # 0.1 10^3/uL (0.0-0.5); EOS % 1.3 % (0.0-3.0); LYMPH # 0.9 10^3/uL (1.5-5.0); LYMPH % 8.7 % (24.0-44.0); MONO # 0.7 10^3/uL (0.0-0.8); MONO % 6.5 % (2.0-8.0); NEUTROPHILS # 8.7 10^3/uL (1.5-8.5); NEUTROPHILS % 82.5 % (36.0-66.0); PLATELET COUNT, AUTOMATED 187 10^3/uL (150-450)
[2025-02-11 22:48] LABS: AMPHETAMINES LEVEL URINE NEGATIVE (NEGATIVE); BARBITURATES URINE NEGATIVE (NEGATIVE); BENZODIAZEPINES URINE NEGATIVE (NEGATIVE); CANNABINOIDS URINE NEGATIVE (NEGATIVE); COCAINE METABOLITE URINE NEGATIVE (NEGATIVE); METHADONE URINE NEGATIVE (NEGATIVE); OPIATES URINE NEGATIVE (NEGATIVE); PHENCYCLIDINE URINE NEGATIVE (NEGATIVE)
[2025-02-11 22:51] LABS: ETHYL ALCOHOL (ETHANOL) < 0.003 % (0.000-0.010)
[2025-02-11 23:34] LABS: CALCIUM LEVEL 8.8 MG/DL (8.3-10.6); CARBON DIOXIDE LEVEL 24 MMOL/L (20-31); CHLORIDE LEVEL 105 MMOL/L (98-107); CK-MB VALUE MASS 5.7 NG/ML (<3.6); CPK CREATINE PHOSPHOKINASE 117 U/L (46-171); CREATININE FOR GFR 2.15 MG/DL (0.70-1.30); FREE T4 1.39 NG/DL (0.89-1.76); GLOMERULAR FILTRATION RATE 29.3 (>35); MAGNESIUM LEVEL 2.2 MG/DL (1.8-2.4); MB/CK RELATIVE INDEX 4.87 (< OR =4); POTASSIUM SERUM 4.5 MMOL/L (3.5-5.1); SODIUM LEVEL 140 MMOL/L (136-145)
[2025-02-11] MEDS: PERCOCET 5MG/325MG TAB PO ONE (23:46)
[2025-02-11] MEDS ORDERED: NS (Normal Saline) 0.9% 1,000 ML IV ONE (23:55)
[2025-02-12] VITALS (7 sets, daily range): BP systolic 113–190; BP diastolic 54–80; TEMP 97.9–100; O2SAT 96–99
[2025-02-12] MEDS: NS 500 ML IV ONE (00:09)
[2025-02-12 00:38] LABS: CK-MB VALUE MASS 5.5 NG/ML (<3.6)
[2025-02-12 00:40] LABS: CPK CREATINE PHOSPHOKINASE 110.0 U/L (46-171); MB/CK RELATIVE INDEX 5.0 (< OR =4)
[2025-02-12] MEDS: LIDOCAINE 2% MDV 20 ML VIAL SC ONE (01:21)
[2025-02-12] MEDS ORDERED: ONDANSETRON 4MG/2ML VIAL IV PRN (01:35)
[2025-02-12] MEDS ORDERED: METOPROLOL TART 25 MG TABLET PO SCH (01:35)
[2025-02-12] MEDS ORDERED: traZODone 50 MG TAB PO PRN (01:35)
[2025-02-12] MEDS: NS (Normal Saline) 0.9% 1,000 ML IV SCH (02:01)
[2025-02-12] MEDS: METOPROLOL SUCC. 100 MG *XL* TAB PO ONE (02:08)
[2025-02-12] MEDS: **hydrALAZINE HCL** 25 MG TAB PO SCH (05:06)
[2025-02-12] MEDS: ACETAMINOPHEN *IV* 1,000 MG in IV 1 EA IV ONE (06:59)
[2025-02-12] MEDS: METOPROLOL SUCC. 100 MG *XL* TAB PO SCH (08:08)
[2025-02-12] MEDS ORDERED: TAMSULOSIN 0.4 MG CAP PO SCH (09:00)
[2025-02-12] MEDS ORDERED: METO1TAB33 PO (13:36)
[2025-02-12] MEDS ORDERED: NITR0.4S14 PO (13:36)
[2025-02-12] MEDS ORDERED: AMIO200T54 PO (13:36)
[2025-02-12] MEDS ORDERED: ISOS1TAB35 PO (13:36)
[2025-02-12] MEDS ORDERED: HOME MED LIST COMPLETE! XX SCH (13:40)
[2025-02-12] MEDS ORDERED: FAMOTIDINE 20 MG TAB PO PRN (13:50)
[2025-02-12] MEDS: amLODIPine 10 MG TAB PO ONE (14:04)
[2025-02-12] MEDS ORDERED: PILL CUTTER 1 EACH XX PRN (14:10)
[2025-02-12] MEDS: ISOSORBIDE MONONITRATE 30 MG XR TAB PO SCH (14:38)
[2025-02-12] MEDS: ACETAMINOPHEN 325 MG TAB PO PRN (17:29)
[2025-02-13] MEDS: RAMELTEON 8 MG TAB PO ONE (00:06)
[2025-02-13 04:00] VITALS: BP 123/59; TEMP 100.4; O2SAT 95
[2025-02-13] MEDS: MORPHINE SULFATE TAB IMM. REL. 30 MG PO PRN (06:36)
[2025-02-13] MEDS: MOM 30 ML SUSPENSION UDC PO PRN (06:36)
[2025-02-13 06:51] LABS: BASO # 0.0 10^3/uL (0.0-0.2); BASO % 0.3 % (0.0-1.0); EOS # 0.2 10^3/uL (0.0-0.5); EOS % 2.6 % (0.0-3.0); LYMPH # 0.3 10^3/uL (1.5-5.0); LYMPH % 5.0 % (24.0-44.0); MONO # 0.4 10^3/uL (0.0-0.8); MONO % 6.4 % (2.0-8.0); NEUTROPHILS # 5.3 10^3/uL (1.5-8.5); NEUTROPHILS % 85.1 % (36.0-66.0); PLATELET COUNT, AUTOMATED 143 10^3/uL (150-450)
[2025-02-13 07:26] LABS: CALCIUM LEVEL 8.6 MG/DL (8.3-10.6); CARBON DIOXIDE LEVEL 25.0 MMOL/L (20-31); CHLORIDE LEVEL 108.0 MMOL/L (98-107); CREATININE FOR GFR 1.83 MG/DL (0.70-1.30); GLOMERULAR FILTRATION RATE 35.5 (>35); MAGNESIUM LEVEL 1.8 MG/DL (1.8-2.4); POTASSIUM SERUM 3.9 MMOL/L (3.5-5.1); SODIUM LEVEL 141.0 MMOL/L (136-145)
[2025-02-13 08:00] VITALS: BP 117/57; TEMP 98.5; O2SAT 96
[2025-02-13] MEDS: AMIODARONE 200 MG TAB PO SCH (08:51)
[2025-02-13] MEDS: ASPIRIN 81 MG ENTERIC TABLET PO SCH (08:51)
[2025-02-13] MEDS: THIAMINE 100 MG TAB PO SCH (08:52)
[2025-02-13] MEDS: amLODIPine 5 MG TAB PO SCH (08:52)
[2025-02-13] MEDS: LIDOCAINE 5% PATCH TOP SCH (08:53)
[2025-02-13] MEDS: POTASSIUM CHLORIDE 10MEQ SR TABLET PO ONE (10:16)
[2025-02-13] MEDS: MAG SULF 1GM/100ML (MAG RUN) 1 GM in IV 1 EA IV ONE (10:16)
[2025-02-13 12:00] VITALS: BP 147/68; TEMP 98.2; O2SAT 97
[2025-02-13 16:00] VITALS: BP 120/64; TEMP 98.1; O2SAT 98
[2025-02-13 16:07] LABS: KETONE, URINE AUTO RFX NEGATIVE (NEGATIVE); LEUKOCYTE ESTERASE UR AUTO RFX NEGATIVE (NEGATIVE); MUCUS, URINE RFX SMALL (NEGATIVE); NITRITE, URINE AUTO RFX NEGATIVE (NEGATIVE); RBC, URINE AUTO RFX 1 /HPF (0-3); SQUAM EPITHELIAL CELL UR AURFX 1 /HPF (0-6); WBC, URINE AUTO RFX 2 /HPF (0-3)
[2025-02-13] MEDS: VANCOMYCIN 125MG CAPSULE PO SCH (18:00)
[2025-02-13 20:00] VITALS: BP 124/59; TEMP 98.6; O2SAT 97
[2025-02-13] MEDS: ENOXAPARIN 30 MG/0.3 ML SYRINGE (J1650 PER 10MG) SC SCH (22:01)
[2025-02-13 23:42] VITALS: BP 144/67; TEMP 98.8; O2SAT 96
[2025-02-14 04:00] VITALS: BP 136/67; TEMP 98.7; O2SAT 95
[2025-02-14 06:04] LABS: BASO # 0.0 10^3/uL (0.0-0.2); BASO % 0.4 % (0.0-1.0); EOS # 0.4 10^3/uL (0.0-0.5); EOS % 5.7 % (0.0-3.0); LYMPH # 1.0 10^3/uL (1.5-5.0); LYMPH % 14.5 % (24.0-44.0); MONO # 0.6 10^3/uL (0.0-0.8); MONO % 8.2 % (2.0-8.0); NEUTROPHILS # 4.9 10^3/uL (1.5-8.5); NEUTROPHILS % 70.8 % (36.0-66.0); PLATELET COUNT, AUTOMATED 141 10^3/uL (150-450)
[2025-02-14 06:26] LABS: CALCIUM LEVEL 8.7 MG/DL (8.3-10.6); CARBON DIOXIDE LEVEL 26.0 MMOL/L (20-31); CHLORIDE LEVEL 109.0 MMOL/L (98-107); CREATININE FOR GFR 1.95 MG/DL (0.70-1.30); GLOMERULAR FILTRATION RATE 32.9 (>35); POTASSIUM SERUM 4.7 MMOL/L (3.5-5.1); SODIUM LEVEL 142.0 MMOL/L (136-145)
[2025-02-14 07:47] VITALS: BP 158/79; TEMP 98.7; O2SAT 95
[2025-02-14 12:07] VITALS: BP 151/70; TEMP 98.6; O2SAT 96
[2025-02-14 17:01] VITALS: BP 137/67; TEMP 99.2; O2SAT 97
[2025-02-14 20:00] VITALS: BP 129/63; TEMP 99; O2SAT 94
[2025-02-14] MEDS: RAMELTEON 8 MG TAB PO PRN (22:13)
[2025-02-14 23:41] VITALS: BP 138/65; TEMP 99.1; O2SAT 96
[2025-02-15] MEDS ORDERED: RAMELTEON 8 MG TAB PO SCH (01:00)
[2025-02-15 04:00] VITALS: BP 147/66; TEMP 99.4; O2SAT 96
[2025-02-15 06:29] LABS: PLATELET COUNT, AUTOMATED 155 10^3/uL (150-450)
[2025-02-15 06:52] LABS: CALCIUM LEVEL 8.6 MG/DL (8.3-10.6); CARBON DIOXIDE LEVEL 27.0 MMOL/L (20-31); CHLORIDE LEVEL 106.0 MMOL/L (98-107); CREATININE FOR GFR 1.96 MG/DL (0.70-1.30); GLOMERULAR FILTRATION RATE 32.7 (>35); POTASSIUM SERUM 4.4 MMOL/L (3.5-5.1); SODIUM LEVEL 141.0 MMOL/L (136-145)
[2025-02-15 07:50] VITALS: BP 160/74; TEMP 98.7; O2SAT 96
[2025-02-15 11:32] VITALS: BP 129/60
[2025-02-15] MEDS ORDERED: HYDR25TA87 PO (11:42)
[2025-02-15] MEDS ORDERED: RISATAB3 PO (11:42)
[2025-02-15] MEDS ORDERED: VANC1CAP6 PO (11:42)
[2025-02-15 11:43] VITALS: BP 126/62; TEMP 98.6; O2SAT 96
== END 2025-02-15 14:24 | disposition home health service (06) ==
LOC: M ED 20:43 → M ED INP 20:44 → M MSPAV 02-12 04:04
PROVIDERS: ADMIT Internal Medicine; ATTEND Student in an Organized Health Care Education/Training Program
DX: S02.2XXA Fracture of nasal bones, initial encounter for closed fracture (principal); W19.XXXA Unspecified fall, initial encounter; Y93.G1 Activity, food preparation and clean up; Y92.000 Kitchen of unspecified non-institutional (private) residence as the place of occurrence of the external cause; I25.10 Atherosclerotic heart disease of native coronary artery without angina pectoris; Z95.5 Presence of coronary angioplasty implant and graft; M51.369 Other intervertebral disc degeneration, lumbar region without mention of lumbar back pain or lower extremity pain; Z95.0 Presence of cardiac pacemaker; N18.9 Chronic kidney disease, unspecified; I12.9 Hypertensive chronic kidney disease with stage 1 through stage 4 chronic kidney disease, or unspecified chronic kidney disease; I35.0 Nonrheumatic aortic (valve) stenosis; I73.9 Peripheral vascular disease, unspecified; J84.9 Interstitial pulmonary disease, unspecified; Z95.828 Presence of other vascular implants and grafts; Z98.42 Cataract extraction status, left eye; Z98.41 Cataract extraction status, right eye; Z90.49 Acquired absence of other specified parts of digestive tract; N17.9 Acute kidney failure, unspecified; Z79.82 Long term (current) use of aspirin; Z79.899 Other long term (current) drug therapy; B34.8 Other viral infections of unspecified site; A04.72 Enterocolitis due to Clostridium difficile, not specified as recurrent; S40.012A Contusion of left shoulder, initial encounter; S60.212A Contusion of left wrist, initial encounter; R19.7 Diarrhea, unspecified
CPT/HCPCS: 36415; 70450; 70486; 71045; 72125; 73030; 73080; 73110; 80048; 80307; 81001; 82077; 82550; 82553; 82803; 83605; 83735; 84145; 84439; 84443; 84484; 85025; 85027; 87040; 87324; 87486; 87507; 87581; 87633; 87798; 93005; 93041; 94760; 96361; 96365; 96372; 96375; 97116; 97161; 97530; 99285; G0378; J0134; J1650; J3475

== ENCOUNTER → 2025-02-17 | Outpatient (REF) | payer MEDICARE ==
[~2025-02-17] MED LIST changes: +AMIO200T54 PO; +ISOS1TAB35 PO; +METO1TAB33 PO; +NITR0.4S14 PO; +RISATAB3 PO; +VANC1CAP6 PO
[2025-02-17 17:15] LABS: CALCIUM LEVEL 9.4 MG/DL (8.3-10.6); CARBON DIOXIDE LEVEL 30.0 MMOL/L (20-31); CHLORIDE LEVEL 104.0 MMOL/L (98-107); CREATININE FOR GFR 2.18 MG/DL (0.70-1.30); GLOMERULAR FILTRATION RATE 28.8 (>35); PLATELET COUNT, AUTOMATED 213 10^3/uL (150-450); POTASSIUM SERUM 5.2 MMOL/L (3.5-5.1); SODIUM LEVEL 141.0 MMOL/L (136-145)
== END ==
LOC: M SFHCCLAY 14:29
PROVIDERS: ATTEND Student in an Organized Health Care Education/Training Program
DX: Z51.89 Encounter for other specified aftercare (principal); Z79.899 Other long term (current) drug therapy